=== PATIENT | female | born 1960 | race Caucasian/White ===

== ENCOUNTER → 2018-10-16 14:52 | Outpatient (CLI) | payer OTHER, SELFPAY ==
--- NOTE | 2018-10-16 | DI.ECHO.S_ITS ---
[facility]---------+ [facility] +---------+ : : [address] : [address] [place] : : : : [id number] : : : : Phone: [phone]+ Echocardiogram Report + + :Name: TORY NEWTON Study Date: 10/16/2018 Height: 64 in : :[facility] Weight: 186 lb : : Gender: Female BSA: 1.9 m2 : :: 1960 Age: 58 yrs BP: 120/82 mmHg: :Reason For Study: Arrhythmia, PVCs : : Performed By: Belén Tobin : :Referring: MORIAH CHERY : + + Interpretation Summary 1) Normal left ventricular thickness, size, wall motion, and systolic function (EF 60-65%). 2) Grossly, normal right ventricular size and function. 3) No significant valvular abnormalities. 4) No prior Echo available for comparison. Procedure: A two-dimensional transthoracic echocardiogram with color flow and Doppler was performed. The study quality was technically adequate. There is no prior echocardiogram noted for this patient. The patient was in normal sinus rhythm during the exam. The patient had occasional PVCs during the exam. Left Ventricle: The left ventricle is normal in size, wall thickness, and systolic function without any focal wall motion abnormalities. The ejection fraction is estimated to be 60-65%. Diastolic function could not be accurately assessed due to unobtainable data. Right Ventricle: The right ventricle grossly appears normal in size with probable normal systolic function. Atria: The left atrial size is normal. Right atrial size is normal. The interatrial septum is intact with no evidence for an atrial septal defect. Mitral Valve: The mitral valve is normal in structure and function. There is no mitral regurgitation noted. Aortic Valve: The aortic valve is trileaflet. The aortic valve opens well. There is no aortic valve stenosis. No aortic regurgitation is present. Tricuspid Valve: The tricuspid valve is normal in structure and function. No tricuspid regurgitation. Pulmonic Valve: The pulmonic valve is normal in structure and function. There is trace pulmonic regurgitation. Great Vessels: The aortic root is normal size. The dimensions of the ascending aorta are normal. The aortic arch is normal in size. The IVC is of normal diameter and collapses less than 50% with a sniff. This suggests a right atrial pressure of 8 mm Hg. Pericardium/ Pleura There is no pericardial effusion. There is no pleural effusion. MMode/2D Measurements & Calculations LVIDd: 4.1 cm Ao root diam: 2.7 cm LVIDs: 2.8 cm Aortic Jxn: 2.5 cm FS: 32.1 % asc Aorta Diam: 2.8 cm EPSS: 0.56 cm Ao Arch Diam (Prox Trans): 2.7 cm IVSd: 0.95 cm LVPWd: 0.89 cm LV reddy. diameter/BSA (cm/m^2): 2.1 LV sys. diameter/BSA (cm/m^2): 1.5 LA dimension: 3.9 cm RA long axis: 4.0 cm LA A2 area: 18.0 cm2 RA area: 12.5 cm2 LA A4 area: 14.6 cm2 RA vol: 33.1 ml LA length (vol): 4.9 cm RA : 17.5 ml/m2 LA vol: 45.9 ml IVC diam: 1.5 cm LA vol index: 24.2 ml/m2 Doppler Measurements & Calculations Ao V2 max: 136.1 cm/sec MV E max vitaly: 68.1 cm/sec Ao V2 mean: 86.3 cm/sec MV A max vitaly: 91.5 cm/sec Ao max P.4 mmHg MV E/A: 0.74 Ao mean P.6 mmHg Med Peak E' Vitaly: 5.3 cm/sec Ao V2 VTI: 25.4 cm E/E' med: 12.9 Lat Peak E' Vitaly: 8.0 cm/sec E/E' lat: 8.5 E/e' average: 10.7 MV dec time: 0.30 sec MV P1/2t: 87.0 msec PA V2 max: 72.8 cm/sec MV P1/2t max vitaly: 67.7 cm/sec PA V2 mean: 41.9 cm/sec MVA(P1/2t): 2.5 cm2 PA mean P.87 mmHg PA Accel Time: 0.18 sec Reading Physician:10:23 AM
== END ==
PROVIDERS: PCP Internal Medicine; Visit Provider Internal Medicine Cardiovascular Disease
DX: I49.3 Ventricular premature depolarization (principal)
CPT/HCPCS: 93306

== ENCOUNTER 2021-02-01 09:25 | Inpatient (IN) | payer OTHER, SELFPAY ==
[2021-02-01] VITALS (12 sets, daily range): BP systolic 127–158; BP diastolic 60–75; PULSE 90–120; RESP 17–18; TEMP 36.2–37; O2SAT 95–100; BMI 27.8; BMI 28.0
[2021-02-01 09:40] LABS: Add Manual Diff / Slide Review NO; Basophils Absolute Auto 100 /uL (0-100); Basophils Percent Auto 0.4 % (0-2); Eosinophils Absolute Auto 0 /uL (0-450); Hematocrit 47.6 % (36-46); Hemoglobin 16.2 g/dL (12.0-16.0); Lymphocytes Absolute Auto 900 /uL (1100-4500); Lymphocytes Percent Auto 6.1 % (25-40); Mean Corpuscular Hemoglobin 31.9 PG (26-34); Mean Corpuscular Volume 93.7 fL (80-100); Monocytes Absolute Auto 900 /uL (0-900); Monocytes Percent Auto 6.7 % (3-14); Neutrophils Absolute Auto 12200 /uL (1500-7000); Neutrophils Percent Auto 86.8 % (50-75); Platelet Count 287 X10^3/uL (150-400); Red Blood Cell Count 5.08 X10^6/uL (4.0-5.2); Red Cell Distribution Width 13.2 % (11.6-14.8); White Blood Cell Count 14.1 X10^3/uL (4.5-11.0)
[2021-02-01] MEDS: ONDANSETRON 4 MG/2 ML INJ IV ×2 (09:40→12:09)
[2021-02-01 09:51] LABS: Alanine Aminotransferase 47 IU/L (<35); Albumin 5.4 g/dL (3.5-5.0); Albumin Globulin Ratio 1.2 (1.0-2.8); Alkaline Phosphatase 200 U/L (38-126); Aspartate Aminotransferase 96 IU/L (14-36); BUN Creatinine Ratio 22.2 (6-22); Blood Urea Nitrogen 16 mg/dL (7-17); Carbon Dioxide 19 mmol/L (22-32); Chloride 92 mmol/L (98-107); Estimated Glomerular Filt Rate > 60.0 mL/min (>60); Globulin 4.5 g/dL (1.7-4.1); Glucose 142 mg/dL (70-100); HEMOLYSIS 32 (0-50); Lipase 59 U/L (23-300); Sodium 134 mmol/L (137-145)
[2021-02-01 09:53] LABS: Total Protein 9.9 g/dL (6.3-8.2)
--- NOTE | 2021-02-01 09:58 | ED_ITS ---
HPI - Abdominal Pain <Yanely Yepez PA-C - Last Filed: 02/01/21 14:00> General Chief Complaint: Abdominal Pain Stated Complaint: vomiting for two days, diarrhea, fever Time Seen by Provider: 02/01/21 09:33 Source: patient Mode of arrival: Ambulatory Limitations: no limitations History of Present Illness HPI narrative: Patient is a 60-year-old female PMH HTN, cholecystectomy, hysterectomy, R breast cancer (remission, not currently under chemotherapy/radiation), left-sided abdominal hernia repair who presents the ED complaining of 2d history of lower abdominal pain, NBNB vomiting, and fever (Tmax 101F). Symptoms onset suddenly, have been worsening, and she reports po intolerance x2 days. Denies alleviating or exacerbating factors. She has attempted to use ODT zofran yesterday without relief. Pain is located in the L lower and suprapubic region without radiation of pain. Last BM today, reports new onset non-bloody diarrhea x few episodes. Denies sick contacts. Denies hematochezia, hemetemesis, melena, syncope, CP, SOB, flank pain, or urinary sxs. Related Data Home Medications Medication Instructions Recorded Confirmed cholestyramine (with sugar) 1 ea PO DAILY PRN 02/01/21 02/01/21 clobetasol 1 applic TOPICAL DAILY PRN 02/01/21 02/01/21 hydroxyzine HCl 25 mg PO Q8H PRN 02/01/21 02/01/21 lisinopril 40 mg PO BEDTIME 02/01/21 02/01/21 omeprazole 20 mg PO BID 02/01/21 02/01/21 propranolol 20 mg PO BID PRN 02/01/21 02/01/21 venlafaxine 225 mg PO DAILY 02/01/21 02/01/21 Previous Rx's Medication Instructions Recorded amlodipine 10 mg PO QDAY #30 tab 03/30/16 Allergies Allergy/AdvReac Type Severity Reaction Status Date / Time neomycin Allergy Intermediate RASHES. Verified 02/01/21 09:33 Penicillins Allergy Intermediate RASHES ALL Verified 02/01/21 09:33 OVER, SWEELING. Review of Systems <Yanely Yepez PA-C - Last Filed: 02/01/21 14:00> Review of Systems Narrative: General: reports fever, denies chills Head/Neck: denies headache, neck pain Eyes: denies visual changes, eye pain Cardio: denies chest pain, palpitations Respiratory: denies shortness of breath, cough GI: Reports abdominal pain, nausea, vomiting, and diarrhea : denies dysuria, hematuria MSK: denies joint pain, muscle weakness Skin: denies rash, itching Neuro: denies LOC, numbness, tingling, loss of sensory/motor function Patient History <Yanely Yepez PA-C - Last Filed: 02/01/21 14:00> Medical History Johnston esophagus Breast cancer, right GERD (gastroesophageal reflux disease) Hypertension Surgical History History of hysterectomy Hx of cholecystectomy Hx of hernia repair Social History household members: spouse Smoking Status: Former smoker alcohol intake: current Smoking Status: Former smoker alcohol intake frequency: 0-2 drinks per day Substance Use Type: does not use Exam <Yanely Yepez PA-C - Last Filed: 02/01/21 14:00> Narrative Exam Narrative: General: Awake, alert, ill, uncomfortable appearing, no cardiorespiratory distress Head/Neck: Atraumatic, neck full range of motion Eyes: EOMI, conjunctiva normal Nose: nares patent, no rhinorrhea Mouth/Throat: Dry mucus membranes, posterior pharynx normal, no oral lesions Cardio: Tachycardic, regular rhythm, no peripheral edema Respiratory: CTAB without wheezing, stridor, or rales. No retractions. GI: Abdomen soft. TTP LLQ, suprapubic regions with voluntary guarding. No appreciable distention, hernia, or peritoneal signs. MSK: Moves all extremities, neurovascularly intact Skin: Normal capillary refill, no rash Neuro: Normal speech and cognition, normal gait Initial Vital Signs Initial Vital Signs: Vital Signs Temperature 98.3 F 02/01/21 09:28 Pulse Rate 115 H 02/01/21 09:28 Respiratory Rate 17 02/01/21 09:28 Blood Pressure 158/75 H 02/01/21 09:28 Pulse Oximetry 100 02/01/21 09:28 <Sergei Lainez DO - Last Filed: 02/01/21 19:03> Initial Vital Signs Initial Vital Signs: Vital Signs Temperature 98.3 F 02/01/21 09:28 Pulse Rate 115 H 02/01/21 09:28 Respiratory Rate 17 02/01/21 09:28 Blood Pressure 158/75 H 02/01/21 09:28 Pulse Oximetry 100 02/01/21 09:28 Course <Yanely Yepez PA-C - Last Filed: 02/01/21 14:00> Orders Ordered: ED Orders 02/01/21 10:32 CT abdomen pelvis w con Stat 02/01/21 10:42 Blood Culture Stat Complete Blood Count AUTO DIFF Stat Comprehensive Metabolic Panel Stat Lactate (Lactic Acid) Stat Lipase Stat 02/01/21 11:25 Urinalysis and Microscopic Stat Acetaminophen (Acetaminophen 325 Mg Tablet) 650 mg PO Q6HR PRN PRN Reason: Fever/Mild Pain (1-3) Cholestyramine Resin (Cholestyramine/Aspartame 4 Gm Pack) 4 gm PO DAILY [facility] Folic Acid (Folic Acid 1 Mg Tablet) 1 mg PO DAILY [facility] Heparin Sodium (Porcine) (Heparin 5,000 Unit/Ml Vial) 5,000 unit SUBCUT BID [facility] Sodium Chloride (Normal Saline 0.9%) 1,000 mls @ 150 mls/hr IV CONT [facility] Last Admin: 02/01/21 13:35 Dose: 150 mls/hr Documented by: FABBY Thiamine HCl 100 mg/ Sodium (Chloride) 101 mls @ 404 mls/hr IV DAILY [facility] Last Infusion: 02/01/21 15:52 Dose: 0 mls/hr Documented by: Admin: 02/01/21 15:00 Dose: 404 mls/hr Documented by: FABBY Lorazepam (Lorazepam 2 Mg/Ml Inj) 0 mg IV CIWAPRN PRN; Protocol PRN Reason: Alcohol Withdrawal Lorazepam (Lorazepam 1 Mg Tablet) 0 mg PO CIWAPRN PRN; Protocol PRN Reason: Alcohol Withdrawal Morphine Sulfate (Morphine 2 Mg/Ml Inj) 2 mg IV Q4HR PRN PRN Reason: Pain, Moderate (4-6) Multivitamins (Multivitamin 1 Tablet) 1 tab PO DAILY [facility] Naloxone HCl (Naloxone 0.4 Mg/Ml Vial) 0.2 mg IV Q2MIN PRN PRN Reason: Opiate Reversal Ondansetron HCl (Ondansetron 4 Mg/2 Ml Inj) 4 mg IV Q8HR PRN PRN Reason: Nausea And Vomiting Oxycodone HCl (Oxycodone Ir 5 Mg Tablet) 5 mg PO Q6HR PRN PRN Reason: Pain, Moderate (4-6) Pantoprazole Sodium (Pantoprazole 40 Mg Vial) 40 mg IV DAILY [facility] Last Admin: 02/01/21 13:35 Dose: 40 mg Documented by: FABBY Venlafaxine HCl (Venlafaxine Er 75 Mg Cap) 225 mg PO DAILY [facility] Discontinued Medications Sodium Chloride (Normal Saline 0.9%) 1,000 mls @ 150 mls/hr IV CONT MELANIA Last Infusion: 02/01/21 13:37 Dose: 0 mls/hr Documented by: Infusion: 02/01/21 12:57 Dose: 0 mls/hr Documented by: Admin: 02/01/21 10:19 Dose: 150 mls/hr Documented by: LUISITO Ciprofloxacin (Cipro) 400 mg in 200 mls @ 200 mls/hr IV NOW ONE Stop: 02/01/21 10:53 Last Infusion: 02/01/21 12:55 Dose: 0 mls/hr Documented by: Admin: 02/01/21 10:52 Dose: 200 mls/hr Documented by: LUISITO Metronidazole (Flagyl) 500 mg in 100 mls @ 100 mls/hr IV NOW ONE Stop: 02/01/21 10:53 Last Infusion: 02/01/21 12:00 Dose: 0 mls/hr Documented by: Admin: 02/01/21 10:43 Dose: 100 mls/hr Documented by: LUISITO Sodium Chloride (Normal Saline 0.9%) 1,000 mls @ 1,000 mls/hr IV BOLUS ONE Stop: 02/01/21 12:20 Last Infusion: 02/01/21 12:55 Dose: 0 mls/hr Documented by: Admin: 02/01/21 12:35 Dose: 1,000 mls/hr Documented by: LUISITO Magnesium Sulfate (Magnesium Sulfate) 2 gm in 50 mls @ 25 mls/hr IV NOW ONE Stop: 02/01/21 17:09 Last Admin: 02/01/21 15:48 Dose: 25 mls/hr Documented by: MARIA LUISA Cosigned by: MIKEL Potassium Phosphate 15 mmol/ (Dextrose) 255 mls @ 63.75 mls/hr IV NOW ONE Stop: 02/01/21 15:12 Last Admin: 02/01/21 15:52 Dose: 63.75 mls/hr Documented by: MARIA LUISA Lorazepam (Lorazepam 2 Mg/Ml Inj) 0.5 mg IV Q6HR PRN PRN Reason: Nausea And Vomiting Last Admin: 02/01/21 13:40 Dose: 0.5 mg Documented by: FABBY Lorazepam (Lorazepam 0.5 Mg Tablet) 0.5 mg PO BEDTIME ONE Stop: 02/01/21 18:46 Morphine Sulfate (Morphine 4 Mg/Ml Inj) 4 mg IV NOW ONE Stop: 02/01/21 09:47 Last Admin: 02/01/21 10:15 Dose: 4 mg Documented by: CTRARLYN Morphine Sulfate (Morphine 4 Mg/Ml Inj) 4 mg IV NOW ONE Stop: 02/01/21 11:51 Last Admin: 02/01/21 12:10 Dose: 4 mg Documented by: LUISITO Ondansetron HCl (Ondansetron 4 Mg/2 Ml Inj) 4 mg IV NOW ONE Stop: 02/01/21 09:34 Last Admin: 02/01/21 09:40 Dose: 4 mg Documented by: SARIAH Ondansetron HCl (Ondansetron 4 Mg/2 Ml Inj) 4 mg IV NOW ONE Stop: 02/01/21 11:51 Last Admin: 02/01/21 12:09 Dose: 4 mg Documented by: CTRARLYN Thiamine HCl (Thiamine 200 Mg/2 Ml Vial) 100 mg IV DAILY MELANIA Vital Signs Vital signs: Vital Signs - 8 hr 02/01/21 11:30 02/01/21 12:00 Pulse Rate 120 H 112 H Pulse Oximetry 100 97 <Sergei Lainez DO - Last Filed: 02/01/21 19:03> Orders Ordered: ED Orders 02/01/21 10:32 CT abdomen pelvis w con Stat 02/01/21 10:42 Blood Culture Stat Complete Blood Count AUTO DIFF Stat Comprehensive Metabolic Panel Stat Lactate (Lactic Acid) Stat Lipase Stat 02/01/21 11:25 Urinalysis and Microscopic Stat Acetaminophen (Acetaminophen 325 Mg Tablet) 650 mg PO Q6HR PRN PRN Reason: Fever/Mild Pain (1-3) Cholestyramine Resin (Cholestyramine/Aspartame 4 Gm Pack) 4 gm PO DAILY [facility] Folic Acid (Folic Acid 1 Mg Tablet) 1 mg PO DAILY [facility] Heparin Sodium (Porcine) (Heparin 5,000 Unit/Ml Vial) 5,000 unit SUBCUT BID [facility] Sodium Chloride (Normal Saline 0.9%) 1,000 mls @ 150 mls/hr IV CONT [facility] Last Admin: 02/01/21 13:35 Dose: 150 mls/hr Documented by: FABBY Thiamine HCl 100 mg/ Sodium (Chloride) 101 mls @ 404 mls/hr IV DAILY MELANIA Last Infusion: 02/01/21 15:52 Dose: 0 mls/hr Documented by: DULCEHIDAVIDA Admin: 02/01/21 15:00 Dose: 404 mls/hr Documented by: FABBY Lorazepam (Lorazepam 2 Mg/Ml Inj) 0 mg IV CIWAPRN PRN; Protocol PRN Reason: Alcohol Withdrawal Lorazepam (Lorazepam 1 Mg Tablet) 0 mg PO CIWAPRN PRN; Protocol PRN Reason: Alcohol Withdrawal Morphine Sulfate (Morphine 2 Mg/Ml Inj) 2 mg IV Q4HR PRN PRN Reason: Pain, Moderate (4-6) Multivitamins (Multivitamin 1 Tablet) 1 tab PO DAILY [facility] Naloxone HCl (Naloxone 0.4 Mg/Ml Vial) 0.2 mg IV Q2MIN PRN PRN Reason: Opiate Reversal Ondansetron HCl (Ondansetron 4 Mg/2 Ml Inj) 4 mg IV Q8HR PRN PRN Reason: Nausea And Vomiting Oxycodone HCl (Oxycodone Ir 5 Mg Tablet) 5 mg PO Q6HR PRN PRN Reason: Pain, Moderate (4-6) Pantoprazole Sodium (Pantoprazole 40 Mg Vial) 40 mg IV DAILY [facility] Last Admin: 02/01/21 13:35 Dose: 40 mg Documented by: FABBY Venlafaxine HCl (Venlafaxine Er 75 Mg Cap) 225 mg PO DAILY [facility] Discontinued Medications Sodium Chloride (Normal Saline 0.9%) 1,000 mls @ 150 mls/hr IV CONT [facility] Last Infusion: 02/01/21 13:37 Dose: 0 mls/hr Documented by: Infusion: 02/01/21 12:57 Dose: 0 mls/hr Documented by: Admin: 02/01/21 10:19 Dose: 150 mls/hr Documented by: CTRARLYN Ciprofloxacin (Cipro) 400 mg in 200 mls @ 200 mls/hr IV NOW ONE Stop: 02/01/21 10:53 Last Infusion: 02/01/21 12:55 Dose: 0 mls/hr Documented by: Admin: 02/01/21 10:52 Dose: 200 mls/hr Documented by: CTRARLYN Metronidazole (Flagyl) 500 mg in 100 mls @ 100 mls/hr IV NOW ONE Stop: 02/01/21 10:53 Last Infusion: 02/01/21 12:00 Dose: 0 mls/hr Documented by: Admin: 02/01/21 10:43 Dose: 100 mls/hr Documented by: LUISITO Sodium Chloride (Normal Saline 0.9%) 1,000 mls @ 1,000 mls/hr IV BOLUS ONE Stop: 02/01/21 12:20 Last Infusion: 02/01/21 12:55 Dose: 0 mls/hr Documented by: Admin: 02/01/21 12:35 Dose: 1,000 mls/hr Documented by: LUISITO Magnesium Sulfate (Magnesium Sulfate) 2 gm in 50 mls @ 25 mls/hr IV NOW ONE Stop: 02/01/21 17:09 Last Admin: 02/01/21 15:48 Dose: 25 mls/hr Documented by: MARIA LUISA Cosigned by: MIKEL Potassium Phosphate 15 mmol/ (Dextrose) 255 mls @ 63.75 mls/hr IV NOW ONE Stop: 02/01/21 15:12 Last Admin: 02/01/21 15:52 Dose: 63.75 mls/hr Documented by: MARIA LUISA Lorazepam (Lorazepam 2 Mg/Ml Inj) 0.5 mg IV Q6HR PRN PRN Reason: Nausea And Vomiting Last Admin: 02/01/21 13:40 Dose: 0.5 mg Documented by: FABBY Lorazepam (Lorazepam 0.5 Mg Tablet) 0.5 mg PO BEDTIME ONE Stop: 02/01/21 18:46 Morphine Sulfate (Morphine 4 Mg/Ml Inj) 4 mg IV NOW ONE Stop: 02/01/21 09:47 Last Admin: 02/01/21 10:15 Dose: 4 mg Documented by: LUISITO Morphine Sulfate (Morphine 4 Mg/Ml Inj) 4 mg IV NOW ONE Stop: 02/01/21 11:51 Last Admin: 02/01/21 12:10 Dose: 4 mg Documented by: LUISITO Ondansetron HCl (Ondansetron 4 Mg/2 Ml Inj) 4 mg IV NOW ONE Stop: 02/01/21 09:34 Last Admin: 02/01/21 09:40 Dose: 4 mg Documented by: SARIAH Ondansetron HCl (Ondansetron 4 Mg/2 Ml Inj) 4 mg IV NOW ONE Stop: 02/01/21 11:51 Last Admin: 02/01/21 12:09 Dose: 4 mg Documented by: LUISITO Thiamine HCl (Thiamine 200 Mg/2 Ml Vial) 100 mg IV DAILY [facility] Vital Signs Vital signs: Vital Signs - 8 hr 02/01/21 11:30 02/01/21 12:00 Pulse Rate 120 H 112 H Pulse Oximetry 100 97 MDM - Abdominal Pain <Yanely Yepez PA-C - Last Filed: 02/01/21 14:00> Differential Diagnosis Differential diagnosis: Likely abdominal pain, acute appendicitis, calculus of kidney, constipation, diverticulitis, gastroenteritis, pancreatitis and small bowel obstruction Lab Data Attestation: I reviewed the patient's lab results. Result diagrams: 02/01/21 10:42 02/01/21 10:42 Labs: Lab Results 02/01/21 02/01/21 02/01/21 Range/Units 09:35 09:35 10:42 WBC 14.1 H 11.7 H (4.5-11.0) X10^3/uL RBC 5.08 4.66 (4.0-5.2) X10^6/uL Hgb 16.2 H 14.9 (12.0-16.0) g/dL Hct 47.6 H 44.1 (36-46) % MCV 93.7 94.7 (80-100) fL MCH 31.9 32.0 (26-34) PG MCHC 34.0 33.8 (30-36) % RDW 13.2 13.8 (11.6-14.8) % Plt Count 287 231 (150-400) X10^3/uL Neut % (Auto) 86.8 H 85.5 H (50-75) % Lymph % (Auto) 6.1 L 6.4 L (25-40) % [place] % (Auto) 6.7 7.8 (3-14) % Eos % (Auto) 0.0 L 0.0 L (2-4) % Baso % (Auto) 0.4 0.3 (0-2) % Neut # (Auto) 11025 H 47268 H (6065-7799) /uL Lymph # (Auto) 900 L 700 L (9628-5291) /uL [place] # (Auto) 900 900 (0-900) /uL Eos # (Auto) 0 0 (0-450) /uL Baso # (Auto) 100 0 (0-100) /uL Sodium 134 L (137-145) mmol/L Potassium 4.0 (3.4-5.1) mmol/L Chloride 92 L (98-107) mmol/L Carbon Dioxide 19 L (22-32) mmol/L BUN 16 (7-17) mg/dL Creatinine 0.72 (0.52-1.04) mg/dL Estimated GFR > 60.0 (>60) mL/min BUN/Creatinine Ratio 22.2 H (6-22) Glucose 142 H (70-100) mg/dL Lactate (0.7-2.1) mmol/L Calcium 11.0 H (8.4-10.2) mg/dL Phosphorus (2.5-4.5) mg/dL Magnesium (1.6-2.3) mg/dL Total Bilirubin 4.0 H (0.2-1.3) mg/dL AST 96 H (14-36) IU/L ALT 47 H (<35) IU/L Alkaline Phosphatase 200 H (38-126) U/L Total Protein 9.9 H* (6.3-8.2) g/dL Albumin 5.4 H (3.5-5.0) g/dL Globulin 4.5 H (1.7-4.1) g/dL Albumin/Globulin Ratio 1.2 (1.0-2.8) Lipase 59 (23-300) U/L TSH (0.47-4.68) uIU/mL Urine Color Urine Appearance Urine pH (4.5-8.0) Ur Specific [place] (1.000-1.035) Urine Protein (Negative) Urine Glucose (UA) (Negative) g/dL Urine Ketones (NEGATIVE) Urine Occult Blood (Negative) Urine Nitrate (Negative) Urine Bilirubin (NEGATIVE) Urine Urobilinogen (0.2) E.U./dL Ur Leukocyte Esterase (NEGATIVE) Urine RBC (0-5/HPF) Urine WBC (0-5/HPF) Ur Squamous Epith Cells (0-5/HPF) Urine Bacteria (None) Hyaline Casts (None) Ur Culture Indicated? Ethyl Alcohol ( - 10) mg/dL Hep Bs Antigen (NEGATIVE) s/c 02/01/21 02/01/21 02/01/21 Range/Units 10:42 10:42 10:42 WBC (4.5-11.0) X10^3/uL RBC (4.0-5.2) X10^6/uL Hgb (12.0-16.0) g/dL Hct (36-46) % MCV (80-100) fL MCH (26-34) PG MCHC (30-36) % RDW (11.6-14.8) % Plt Count (150-400) X10^3/uL Neut % (Auto) (50-75) % Lymph % (Auto) (25-40) % [place] % (Auto) (3-14) % Eos % (Auto) (2-4) % Baso % (Auto) (0-2) % Neut # (Auto) (7137-7414) /uL Lymph # (Auto) (0770-1760) /uL [place] # (Auto) (0-900) /uL Eos # (Auto) (0-450) /uL Baso # (Auto) (0-100) /uL Sodium 132 L (137-145) mmol/L Potassium 3.8 (3.4-5.1) mmol/L Chloride 92 L (98-107) mmol/L Carbon Dioxide 19 L (22-32) mmol/L BUN 15 (7-17) mg/dL Creatinine 0.64 (0.52-1.04) mg/dL Estimated GFR > 60.0 (>60) mL/min BUN/Creatinine Ratio 23.4 H (6-22) Glucose 119 H (70-100) mg/dL Lactate 1.0 (0.7-2.1) mmol/L Calcium 10.1 (8.4-10.2) mg/dL Phosphorus (2.5-4.5) mg/dL Magnesium (1.6-2.3) mg/dL Total Bilirubin 3.4 H (0.2-1.3) mg/dL AST 89 H (14-36) IU/L ALT 41 H (<35) IU/L Alkaline Phosphatase 171 H (38-126) U/L Total Protein 8.6 H (6.3-8.2) g/dL Albumin 5.0 (3.5-5.0) g/dL Globulin 3.6 (1.7-4.1) g/dL Albumin/Globulin Ratio 1.4 (1.0-2.8) Lipase 54 (23-300) U/L TSH (0.47-4.68) uIU/mL Urine Color Urine Appearance Urine pH (4.5-8.0) Ur Specific [place] (1.000-1.035) Urine Protein (Negative) Urine Glucose (UA) (Negative) g/dL Urine Ketones (NEGATIVE) Urine Occult Blood (Negative) Urine Nitrate (Negative) Urine Bilirubin (NEGATIVE) Urine Urobilinogen (0.2) E.U./dL Ur Leukocyte Esterase (NEGATIVE) Urine RBC (0-5/HPF) Urine WBC (0-5/HPF) Ur Squamous Epith Cells (0-5/HPF) Urine Bacteria (None) Hyaline Casts (None) Ur Culture Indicated? Ethyl Alcohol ( - 10) mg/dL Hep Bs Antigen Negative (NEGATIVE) s/c 02/01/21 02/01/21 02/01/21 Range/Units 10:42 10:42 10:42 WBC (4.5-11.0) X10^3/uL RBC (4.0-5.2) X10^6/uL Hgb (12.0-16.0) g/dL Hct (36-46) % MCV (80-100) fL MCH (26-34) PG MCHC (30-36) % RDW (11.6-14.8) % Plt Count (150-400) X10^3/uL Neut % (Auto) (50-75) % Lymph % (Auto) (25-40) % [place] % (Auto) (3-14) % Eos % (Auto) (2-4) % Baso % (Auto) (0-2) % Neut # (Auto) (5575-3962) /uL Lymph # (Auto) (6627-3657) /uL [place] # (Auto) (0-900) /uL Eos # (Auto) (0-450) /uL Baso # (Auto) (0-100) /uL Sodium (137-145) mmol/L Potassium (3.4-5.1) mmol/L Chloride (98-107) mmol/L Carbon Dioxide (22-32) mmol/L BUN (7-17) mg/dL Creatinine (0.52-1.04) mg/dL Estimated GFR (>60) mL/min BUN/Creatinine Ratio (6-22) Glucose (70-100) mg/dL Lactate (0.7-2.1) mmol/L Calcium (8.4-10.2) mg/dL Phosphorus 1.6 L (2.5-4.5) mg/dL Magnesium 1.8 (1.6-2.3) mg/dL Total Bilirubin (0.2-1.3) mg/dL AST (14-36) IU/L ALT (<35) IU/L Alkaline Phosphatase (38-126) U/L Total Protein (6.3-8.2) g/dL Albumin (3.5-5.0) g/dL Globulin (1.7-4.1) g/dL Albumin/Globulin Ratio (1.0-2.8) Lipase (23-300) U/L TSH 1.39 (0.47-4.68) uIU/mL Urine Color Urine Appearance Urine pH (4.5-8.0) Ur Specific [place] (1.000-1.035) Urine Protein (Negative) Urine Glucose (UA) (Negative) g/dL Urine Ketones (NEGATIVE) Urine Occult Blood (Negative) Urine Nitrate (Negative) Urine Bilirubin (NEGATIVE) Urine Urobilinogen (0.2) E.U./dL Ur Leukocyte Esterase (NEGATIVE) Urine RBC (0-5/HPF) Urine WBC (0-5/HPF) Ur Squamous Epith Cells (0-5/HPF) Urine Bacteria (None) Hyaline Casts (None) Ur Culture Indicated? Ethyl Alcohol < 10 ( - 10) mg/dL Hep Bs Antigen (NEGATIVE) s/c 02/01/21 Range/Units 11:25 WBC (4.5-11.0) X10^3/uL RBC (4.0-5.2) X10^6/uL Hgb (12.0-16.0) g/dL Hct (36-46) % MCV (80-100) fL MCH (26-34) PG MCHC (30-36) % RDW (11.6-14.8) % Plt Count (150-400) X10^3/uL Neut % (Auto) (50-75) % Lymph % (Auto) (25-40) % [place] % (Auto) (3-14) % Eos % (Auto) (2-4) % Baso % (Auto) (0-2) % Neut # (Auto) (7493-7233) /uL Lymph # (Auto) (6394-4655) /uL [place] # (Auto) (0-900) /uL Eos # (Auto) (0-450) /uL Baso # (Auto) (0-100) /uL Sodium (137-145) mmol/L Potassium (3.4-5.1) mmol/L Chloride (98-107) mmol/L Carbon Dioxide (22-32) mmol/L BUN (7-17) mg/dL Creatinine (0.52-1.04) mg/dL Estimated GFR (>60) mL/min BUN/Creatinine Ratio (6-22) Glucose (70-100) mg/dL Lactate (0.7-2.1) mmol/L Calcium (8.4-10.2) mg/dL Phosphorus (2.5-4.5) mg/dL Magnesium (1.6-2.3) mg/dL Total Bilirubin (0.2-1.3) mg/dL AST (14-36) IU/L ALT (<35) IU/L Alkaline Phosphatase (38-126) U/L Total Protein (6.3-8.2) g/dL Albumin (3.5-5.0) g/dL Globulin (1.7-4.1) g/dL Albumin/Globulin Ratio (1.0-2.8) Lipase (23-300) U/L TSH (0.47-4.68) uIU/mL Urine Color Yellow Urine Appearance Clear Urine pH 6.5 (4.5-8.0) Ur Specific [place] <=1.005 (1.000-1.035) Urine Protein 1+ H (Negative) Urine Glucose (UA) Negative (Negative) g/dL Urine Ketones 3+ H (NEGATIVE) Urine Occult Blood 1+ H (Negative) Urine Nitrate Negative (Negative) Urine Bilirubin Negative (NEGATIVE) Urine Urobilinogen 1.0 (0.2) E.U./dL Ur Leukocyte Esterase Negative (NEGATIVE) Urine RBC 5-10/hpf H (0-5/HPF) Urine WBC None seen (0-5/HPF) Ur Squamous Epith Cells 1-5 /hpf (0-5/HPF) Urine Bacteria None seen (None) Hyaline Casts 0-1/lpf (None) Ur Culture Indicated? Cult not indicated Ethyl Alcohol ( - 10) mg/dL Hep Bs Antigen (NEGATIVE) s/c Point of care testing: Point of Care Testing Test Results Negative Urine Dip Bedside Urine Glucose Negative Bedside Urine Bilirubin - Negative Bedside Urine Ketone +++ 80 Urine Specific [place] 1.010 Bedside Urine Occult Blood + Bedside Urine pH 6.0 Bedside Urine Protein + 30 Bedside Urine Urobilinogen - Negative Bedside Urine Nitrite - Negative Bedside Urine Leukocytes - Negative Esterase Imaging Data CT scan - abdomen/pelvis: Attestation: I personally reviewed and interpreted this imaging study as follows: Radiologist's Impression: [address] [address] Scan ReportSigned Patient: Arabella De La Fuente LMR#: [id number]: 2Acct:[id number]/Sex: 60 / FDate of Service: 02/01/21Loc: EDAccession Number: [id number] Procedure: CT abdomen pelvis w con Ordering Provider: Yanely Yepez P.A-C PROCEDURE: CT ABDOMEN PELVIS W CON INDICATIONS: LLQ pain, vomiting, po intolerant TECHNIQUE: After the administration of intravenous contrast, axial sections acquired from the lung bases to the pubic symphysis. Coronal and sagittal reformats were performed. For radiation dose reduction, the following was used: automated exposure control, adjustment of mA and/or kV according to patient size. COMPARISON: [facility], CT, CT ABDOMEN PELVIS WITH CONTRAST, 09/26/2019, 13:48. [facility], CT, CT ABDOMEN PELVIS WITH CONTRAST, 01/08/2019, 17:11. Located Within [facility], CT, ABDOMEN/PELVIS WITH CONTRAST, 03/26/2016, 9:48. FINDINGS: Lower thorax: The lung bases are clear. Heart size normal. Small hiatal hernia noted with distal esophageal wall thickening. Liver: The liver is diffusely decreased in attenuation without focal mass lesion. Liver is enlarged at 21 cm. A right hepatic hemangioma not demonstrated on the current exam. Biliary system: Cholecystectomy. No intra or extrahepatic bile duct dilation. Pancreas: Unremarkable without mass or inflammation evident. Spleen: Splenomegaly, 14.0 cm. No intrinsic lesion noted. Adrenals: Normal morphology and density. Reproductive system: Hysterectomy Urinary system: There is a striated hypoperfusion of the renal cortex bilaterally. No renal calculi or perinephric inflammatory change. No hydronephrosis. Gastrointestinal system: Fatty infiltration of the right colon muscularis consistent with sequelae of prior or colitis. No acute inflammatory change, or obstruction. The stomach appears unremarkable. 2.3 cm probable duodenal diverticulum is similar to the prior exam. Appendix: No findings to suggest acute appendicitis. Peritoneal spaces: No mesenteric or retroperitoneal adenopathy. No free air. No free fluid. Vasculature: The IVC, aorta and iliac vasculature are unremarkable. Musculoskeletal: Normal bone mineralization. No acute fractures. Prior periumbilical ventral hernia repair without recurrence or residual. T11 sclerotic bone island remains unchanged from the prior. IMPRESSION: 1. Striated hypoenhancement of both kidneys may be related to phase of enhancement. Differential would include early of pyelonephritis if consistent with clinical findings. No renal calculi or hydronephrosis. No perinephric inflammatory change. 2. Hepatosplenomegaly and hepatic fatty infiltration, stable from prior. 3. Ventral hernia repair without recurrence or residual hernia. 4. Small hiatal hernia and distal esophageal wall thickening may reflect mild esophagitis. Dictated by: Fredy Alvarez M.D. on 02/01/2021 at 9:38 Approved by: Fredy Alvarez M.D. on 02/01/2021 at 9:57 MDM Narrative Medical decision making narrative: 0933: Patient initially evaluated and examined in the ED. patient informed of the plan of care and agrees. Tachycardic, nontoxic, uncomfortable appearing. Sepsis orders initiated (lactic, blood cultures, empiric abx, and IVF) given hx of fever, tachycardia, and exam with LLQ tenderness concerning for surgical abdominal pathology. CBC, CMP significant for leukocytosis (WBC 14.1), transaminitis, and elevated protein (9.9). Elevated BUN, mild hyponatremia, hypokalemia, hemoconcentration suggestive of dehydration c/w po intolerance x2 days 2/2 vomiting. 1020: CT A/P with hypoenhancement of bilateral kidneys (possible pyelonephritis, pending UA) without evidence of additional acute abdominal pathology. 1135 Patient re-evaluated, ambulatory. Informed of lab and imaging results as well as ED treatments. Pending UA. Remains tachycardic 120bpm with abd cramping to the LLQ, 12/26 currently. 1221 Advised by nursing staff that patient persists with vomiting, zofran ordered pending administration. UA unremarkable. 1249 Consult to the hospitalist, Dr. Yee. Agrees with evaluation and plan. Agrees to admit patient. Patient was informed of lab and imaging results, diagnoses, consulting physicians, and treatment plan. I have spoken with the patient in regard to admission, patient understands and agrees. I have communicated the patient's evaluation and treatment plan to the admitting physician who agrees with admission. All questions answered at this time. <Sergei Lainez, - Last Filed: 02/01/21 19:03> Lab Data Labs: Lab Results 02/01/21 02/01/21 02/01/21 Range/Units 09:35 09:35 10:42 WBC 14.1 H 11.7 H (4.5-11.0) X10^3/uL RBC 5.08 4.66 (4.0-5.2) X10^6/uL Hgb 16.2 H 14.9 (12.0-16.0) g/dL Hct 47.6 H 44.1 (36-46) % MCV 93.7 94.7 (80-100) fL MCH 31.9 32.0 (26-34) PG MCHC 34.0 33.8 (30-36) % RDW 13.2 13.8 (11.6-14.8) % Plt Count 287 231 (150-400) X10^3/uL Neut % (Auto) 86.8 H 85.5 H (50-75) % Lymph % (Auto) 6.1 L 6.4 L (25-40) % [place] % (Auto) 6.7 7.8 (3-14) % Eos % (Auto) 0.0 L 0.0 L (2-4) % Baso % (Auto) 0.4 0.3 (0-2) % Neut # (Auto) 28873 H 32095 H (1481-5009) /uL Lymph # (Auto) 900 L 700 L (6469-8819) /uL [place] # (Auto) 900 900 (0-900) /uL Eos # (Auto) 0 0 (0-450) /uL Baso # (Auto) 100 0 (0-100) /uL Sodium 134 L (137-145) mmol/L Potassium 4.0 (3.4-5.1) mmol/L Chloride 92 L (98-107) mmol/L Carbon Dioxide 19 L (22-32) mmol/L BUN 16 (7-17) mg/dL Creatinine 0.72 (0.52-1.04) mg/dL Estimated GFR > 60.0 (>60) mL/min BUN/Creatinine Ratio 22.2 H (6-22) Glucose 142 H (70-100) mg/dL Lactate (0.7-2.1) mmol/L Calcium 11.0 H (8.4-10.2) mg/dL Phosphorus (2.5-4.5) mg/dL Magnesium (1.6-2.3) mg/dL Total Bilirubin 4.0 H (0.2-1.3) mg/dL AST 96 H (14-36) IU/L ALT 47 H (<35) IU/L Alkaline Phosphatase 200 H (38-126) U/L Total Protein 9.9 H* (6.3-8.2) g/dL Albumin 5.4 H (3.5-5.0) g/dL Globulin 4.5 H (1.7-4.1) g/dL Albumin/Globulin Ratio 1.2 (1.0-2.8) Lipase 59 (23-300) U/L TSH (0.47-4.68) uIU/mL Urine Color Urine Appearance Urine pH (4.5-8.0) Ur Specific [place] (1.000-1.035) Urine Protein (Negative) Urine Glucose (UA) (Negative) g/dL Urine Ketones (NEGATIVE) Urine Occult Blood (Negative) Urine Nitrate (Negative) Urine Bilirubin (NEGATIVE) Urine Urobilinogen (0.2) E.U./dL Ur Leukocyte Esterase (NEGATIVE) Urine RBC (0-5/HPF) Urine WBC (0-5/HPF) Ur Squamous Epith Cells (0-5/HPF) Urine Bacteria (None) Hyaline Casts (None) Ur Culture Indicated? Ethyl Alcohol ( - 10) mg/dL Hep Bs Antigen (NEGATIVE) s/c 02/01/21 02/01/21 02/01/21 Range/Units 10:42 10:42 10:42 WBC (4.5-11.0) X10^3/uL RBC (4.0-5.2) X10^6/uL Hgb (12.0-16.0) g/dL Hct (36-46) % MCV (80-100) fL MCH (26-34) PG MCHC (30-36) % RDW (11.6-14.8) % Plt Count (150-400) X10^3/uL Neut % (Auto) (50-75) % Lymph % (Auto) (25-40) % [place] % (Auto) (3-14) % Eos % (Auto) (2-4) % Baso % (Auto) (0-2) % Neut # (Auto) (4746-1615) /uL Lymph # (Auto) (6001-2446) /uL [place] # (Auto) (0-900) /uL Eos # (Auto) (0-450) /uL Baso # (Auto) (0-100) /uL Sodium 132 L (137-145) mmol/L Potassium 3.8 (3.4-5.1) mmol/L Chloride 92 L (98-107) mmol/L Carbon Dioxide 19 L (22-32) mmol/L BUN 15 (7-17) mg/dL Creatinine 0.64 (0.52-1.04) mg/dL Estimated GFR > 60.0 (>60) mL/min BUN/Creatinine Ratio 23.4 H (6-22) Glucose 119 H (70-100) mg/dL Lactate 1.0 (0.7-2.1) mmol/L Calcium 10.1 (8.4-10.2) mg/dL Phosphorus (2.5-4.5) mg/dL Magnesium (1.6-2.3) mg/dL Total Bilirubin 3.4 H (0.2-1.3) mg/dL AST 89 H (14-36) IU/L ALT 41 H (<35) IU/L Alkaline Phosphatase 171 H (38-126) U/L Total Protein 8.6 H (6.3-8.2) g/dL Albumin 5.0 (3.5-5.0) g/dL Globulin 3.6 (1.7-4.1) g/dL Albumin/Globulin Ratio 1.4 (1.0-2.8) Lipase 54 (23-300) U/L TSH (0.47-4.68) uIU/mL Urine Color Urine Appearance Urine pH (4.5-8.0) Ur Specific [place] (1.000-1.035) Urine Protein (Negative) Urine Glucose (UA) (Negative) g/dL Urine Ketones (NEGATIVE) Urine Occult Blood (Negative) Urine Nitrate (Negative) Urine Bilirubin (NEGATIVE) Urine Urobilinogen (0.2) E.U./dL Ur Leukocyte Esterase (NEGATIVE) Urine RBC (0-5/HPF) Urine WBC (0-5/HPF) Ur Squamous Epith Cells (0-5/HPF) Urine Bacteria (None) Hyaline Casts (None) Ur Culture Indicated? Ethyl Alcohol ( - 10) mg/dL Hep Bs Antigen Negative (NEGATIVE) s/c 02/01/21 02/01/21 02/01/21 Range/Units 10:42 10:42 10:42 WBC (4.5-11.0) X10^3/uL RBC (4.0-5.2) X10^6/uL Hgb (12.0-16.0) g/dL Hct (36-46) % MCV (80-100) fL MCH (26-34) PG MCHC (30-36) % RDW (11.6-14.8) % Plt Count (150-400) X10^3/uL Neut % (Auto) (50-75) % Lymph % (Auto) (25-40) % [place] % (Auto) (3-14) % Eos % (Auto) (2-4) % Baso % (Auto) (0-2) % Neut # (Auto) (0249-3681) /uL Lymph # (Auto) (5723-0541) /uL [place] # (Auto) (0-900) /uL Eos # (Auto) (0-450) /uL Baso # (Auto) (0-100) /uL Sodium (137-145) mmol/L Potassium (3.4-5.1) mmol/L Chloride (98-107) mmol/L Carbon Dioxide (22-32) mmol/L BUN (7-17) mg/dL Creatinine (0.52-1.04) mg/dL Estimated GFR (>60) mL/min BUN/Creatinine Ratio (6-22) Glucose (70-100) mg/dL Lactate (0.7-2.1) mmol/L Calcium (8.4-10.2) mg/dL Phosphorus 1.6 L (2.5-4.5) mg/dL Magnesium 1.8 (1.6-2.3) mg/dL Total Bilirubin (0.2-1.3) mg/dL AST (14-36) IU/L ALT (<35) IU/L Alkaline Phosphatase (38-126) U/L Total Protein (6.3-8.2) g/dL Albumin (3.5-5.0) g/dL Globulin (1.7-4.1) g/dL Albumin/Globulin Ratio (1.0-2.8) Lipase (23-300) U/L TSH 1.39 (0.47-4.68) uIU/mL Urine Color Urine Appearance Urine pH (4.5-8.0) Ur Specific [place] (1.000-1.035) Urine Protein (Negative) Urine Glucose (UA) (Negative) g/dL Urine Ketones (NEGATIVE) Urine Occult Blood (Negative) Urine Nitrate (Negative) Urine Bilirubin (NEGATIVE) Urine Urobilinogen (0.2) E.U./dL Ur Leukocyte Esterase (NEGATIVE) Urine RBC (0-5/HPF) Urine WBC (0-5/HPF) Ur Squamous Epith Cells (0-5/HPF) Urine Bacteria (None) Hyaline Casts (None) Ur Culture Indicated? Ethyl Alcohol < 10 ( - 10) mg/dL Hep Bs Antigen (NEGATIVE) s/c 02/01/21 Range/Units 11:25 WBC (4.5-11.0) X10^3/uL RBC (4.0-5.2) X10^6/uL Hgb (12.0-16.0) g/dL Hct (36-46) % MCV (80-100) fL MCH (26-34) PG MCHC (30-36) % RDW (11.6-14.8) % Plt Count (150-400) X10^3/uL Neut % (Auto) (50-75) % Lymph % (Auto) (25-40) % [place] % (Auto) (3-14) % Eos % (Auto) (2-4) % Baso % (Auto) (0-2) % Neut # (Auto) (4002-8311) /uL Lymph # (Auto) (0894-7692) /uL [place] # (Auto) (0-900) /uL Eos # (Auto) (0-450) /uL Baso # (Auto) (0-100) /uL Sodium (137-145) mmol/L Potassium (3.4-5.1) mmol/L Chloride (98-107) mmol/L Carbon Dioxide (22-32) mmol/L BUN (7-17) mg/dL Creatinine (0.52-1.04) mg/dL Estimated GFR (>60) mL/min BUN/Creatinine Ratio (6-22) Glucose (70-100) mg/dL Lactate (0.7-2.1) mmol/L Calcium (8.4-10.2) mg/dL Phosphorus (2.5-4.5) mg/dL Magnesium (1.6-2.3) mg/dL Total Bilirubin (0.2-1.3) mg/dL AST (14-36) IU/L ALT (<35) IU/L Alkaline Phosphatase (38-126) U/L Total Protein (6.3-8.2) g/dL Albumin (3.5-5.0) g/dL Globulin (1.7-4.1) g/dL Albumin/Globulin Ratio (1.0-2.8) Lipase (23-300) U/L TSH (0.47-4.68) uIU/mL Urine Color Yellow Urine Appearance Clear Urine pH 6.5 (4.5-8.0) Ur Specific [place] <=1.005 (1.000-1.035) Urine Protein 1+ H (Negative) Urine Glucose (UA) Negative (Negative) g/dL Urine Ketones 3+ H (NEGATIVE) Urine Occult Blood 1+ H (Negative) Urine Nitrate Negative (Negative) Urine Bilirubin Negative (NEGATIVE) Urine Urobilinogen 1.0 (0.2) E.U./dL Ur Leukocyte Esterase Negative (NEGATIVE) Urine RBC 5-10/hpf H (0-5/HPF) Urine WBC None seen (0-5/HPF) Ur Squamous Epith Cells 1-5 /hpf (0-5/HPF) Urine Bacteria None seen (None) Hyaline Casts 0-1/lpf (None) Ur Culture Indicated? Cult not indicated Ethyl Alcohol ( - 10) mg/dL Hep Bs Antigen (NEGATIVE) s/c Point of care testing: Point of Care Testing Test Results Negative Urine Dip Bedside Urine Glucose Negative Bedside Urine Bilirubin - Negative Bedside Urine Ketone +++ 80 Urine Specific [place] 1.010 Bedside Urine Occult Blood + Bedside Urine pH 6.0 Bedside Urine Protein + 30 Bedside Urine Urobilinogen - Negative Bedside Urine Nitrite - Negative Bedside Urine Leukocytes - Negative Esterase Discharge Plan Departure Patient Disposition: Admitted as Observation Clinical Impression: Acute dehydration, Abdominal pain, LLQ Intractable vomiting Qualifiers: Vomiting type: unspecified Nausea presence: with nausea Qualified Code(s): R11.2 - Nausea with vomiting, unspecified Admit Date/Time: 02/01/21 12:48 Admit Provider: Berny Yee
[2021-02-01] MEDS: MORPHINE 4 MG/ML INJ IV ×2 (10:15→12:10)
[2021-02-01] MEDS: SODIUM CHLORIDE 0.9% 1,000 ML 150 ML IV ×2 (10:19→13:35)
--- NOTE | 2021-02-01 10:32 | DI.CT.S_ITS ---
PROCEDURE: CT ABDOMEN PELVIS W CON INDICATIONS: LLQ pain, vomiting, po intolerant TECHNIQUE: After the administration of intravenous contrast, axial sections acquired from the lung bases to the pubic symphysis. Coronal and sagittal reformats were performed. For radiation dose reduction, the following was used: automated exposure control, adjustment of mA and/or kV according to patient size. COMPARISON: [facility], CT, CT ABDOMEN PELVIS WITH CONTRAST, 09/26/2019, 13:48. [facility], CT, CT ABDOMEN PELVIS WITH CONTRAST, 01/08/2019, 17:11. [facility], CT, ABDOMEN/PELVIS WITH CONTRAST, 03/26/2016, 9:48. FINDINGS: Lower thorax: The lung bases are clear. Heart size normal. Small hiatal hernia noted with distal esophageal wall thickening. Liver: The liver is diffusely decreased in attenuation without focal mass lesion. Liver is enlarged at 21 cm. A right hepatic hemangioma not demonstrated on the current exam. Biliary system: Cholecystectomy. No intra or extrahepatic bile duct dilation. Pancreas: Unremarkable without mass or inflammation evident. Spleen: Splenomegaly, 14.0 cm. No intrinsic lesion noted. Adrenals: Normal morphology and density. Reproductive system: Hysterectomy Urinary system: There is a striated hypoperfusion of the renal cortex bilaterally. No renal calculi or perinephric inflammatory change. No hydronephrosis. Gastrointestinal system: Fatty infiltration of the right colon muscularis consistent with sequelae of prior or colitis. No acute inflammatory change, or obstruction. The stomach appears unremarkable. 2.3 cm probable duodenal diverticulum is similar to the prior exam. Appendix: No findings to suggest acute appendicitis. Peritoneal spaces: No mesenteric or retroperitoneal adenopathy. No free air. No free fluid. Vasculature: The IVC, aorta and iliac vasculature are unremarkable. Musculoskeletal: Normal bone mineralization. No acute fractures. Prior periumbilical ventral hernia repair without recurrence or residual. T11 sclerotic bone island remains unchanged from the prior. IMPRESSION: 1. Striated hypoenhancement of both kidneys may be related to phase of enhancement. Differential would include early of pyelonephritis if consistent with clinical findings. No renal calculi or hydronephrosis. No perinephric inflammatory change. 2. Hepatosplenomegaly and hepatic fatty infiltration, stable from prior. 3. Ventral hernia repair without recurrence or residual hernia. 4. Small hiatal hernia and distal esophageal wall thickening may reflect mild esophagitis. Dictated by: Fredy Alvarez, M.D. on 02/01/2021 at 9:38 Approved by: Fredy Alvarez M.D. on 02/01/2021 at 9:57
[2021-02-01] MEDS: metroNIDAZOLE 500 MG/100 ML PIGGYBACK 100 MG IV (10:43)
[2021-02-01 10:50] LABS: Add Manual Diff / Slide Review NO; Basophils Absolute Auto 0 /uL (0-100); Basophils Percent Auto 0.3 % (0-2); Eosinophils Absolute Auto 0 /uL (0-450); Hematocrit 44.1 % (36-46); Hemoglobin 14.9 g/dL (12.0-16.0); Lymphocytes Absolute Auto 700 /uL (1100-4500); Lymphocytes Percent Auto 6.4 % (25-40); Mean Corpuscular HGB Conc 33.8 % (30-36); Mean Corpuscular Volume 94.7 fL (80-100); Monocytes Absolute Auto 900 /uL (0-900); Monocytes Percent Auto 7.8 % (3-14); Neutrophils Absolute Auto 10000 /uL (1500-7000); Neutrophils Percent Auto 85.5 % (50-75); Platelet Count 231 X10^3/uL (150-400); Red Blood Cell Count 4.66 X10^6/uL (4.0-5.2); Red Cell Distribution Width 13.8 % (11.6-14.8); White Blood Cell Count 11.7 X10^3/uL (4.5-11.0)
[2021-02-01] MEDS: CIPROFLOXACIN 400 MG/200 ML PIGGYBACK 200 MG IV (10:52)
[2021-02-01 11:03] LABS: Alanine Aminotransferase 41 IU/L (<35); Albumin Globulin Ratio 1.4 (1.0-2.8); Alkaline Phosphatase 171 U/L (38-126); Aspartate Aminotransferase 89 IU/L (14-36); BUN Creatinine Ratio 23.4 (6-22); Bilirubin Total 3.4 mg/dL (0.2-1.3); Blood Urea Nitrogen 15 mg/dL (7-17); Calcium 10.1 mg/dL (8.4-10.2); Carbon Dioxide 19 mmol/L (22-32); Chloride 92 mmol/L (98-107); Estimated Glomerular Filt Rate > 60.0 mL/min (>60); Globulin 3.6 g/dL (1.7-4.1); Glucose 119 mg/dL (70-100); HEMOLYSIS < 15 (0-50); Lipase 54 U/L (23-300); Potassium 3.8 mmol/L (3.4-5.1); Sodium 132 mmol/L (137-145); Total Protein 8.6 g/dL (6.3-8.2)
[2021-02-01 11:43] LABS: Appearance Urine UA CLEAR; Bacteria Urine None Seen; Bilirubin Urine UA NEGATIVE (NEGATIVE); Color Urine UA YELLOW; Glucose Urine UA NEGATIVE (Negative); Ketones Urine UA 3+ (NEGATIVE); Leukocyte Esterase Urine UA NEGATIVE (NEGATIVE); Nitrite Urine UA NEGATIVE (Negative); Occult Blood Urine UA 1+ (Negative); Protein Urine UA 1+ (Negative); Specific Gravity Urine UA <=1.005 (1.000-1.035); WBC Urine None Seen (0-5/HPF); pH Urine UA 6.5 (4.5-8.0)
[2021-02-01 11:49] LABS: Culture Indicated Urine Cult Not Indicated; Hyaline Casts Urine 0-1/LPF; RBC Urine 5-10/HPF (0-5/HPF); Squamous Epithelial Cell Urine 1-5 /HPF (0-5/HPF)
[2021-02-01] MEDS: SODIUM CHLORIDE 0.9% 1,000 ML 1000 ML IV (12:35)
--- NOTE | 2021-02-01 13:27 | DI.US.S_ITS ---
PROCEDURE: US ABDOMEN COMPLETE INDICATIONS: VOMITING TECHNIQUE: Real-time scanning was performed of the abdominal and retroperitoneal organs, with image documentation. COMPARISON: [facility], US, ABDOMEN COMPLETE, 03/23/2016, 1:42. [facility], CT, CT ABDOMEN PELVIS W CON, 02/01/2021, 10:26. FINDINGS: Liver: The liver demonstrates enlarged size. The liver demonstrates generalized moderately increased echogenicity. This decreases ultrasound sensitivity for detection of hepatic masses. The main portal vein is normal in size at 1 cm and is patent. It is overall not well seen. Gallbladder: Has been removed Biliary ducts: Intrahepatic bile ducts are non-dilated. Extrahepatic bile duct caliber measures 9 mm. Normal is 6-7 mm or less in diameter, or 10 mm or less post-cholecystectomy. Pancreas: Visualized portions of the pancreas are sonographically normal. Spleen: The spleen is enlarged, measuring 14 cm Kidneys: Kidneys are normal in size and echotexture. Right kidney measures 13.3 cm long; left kidney measures 10.8 cm long. No hydronephrosis or nephrolithiasis. No solid masses. Aorta: The mid aorta demonstrates normal caliber. The mid and distal aorta are not well seen, secondary to overlying bowel gas. Iliacs: Not seen, obscured by overlying bowel gas. IVC: Not seen, obscured by overlying bowel gas. Miscellaneous: No free abdominal fluid. IMPRESSION: Limited study, without a cause of vomiting identified. Enlarged, fatty liver. Splenomegaly. Status post cholecystectomy, without biliary dilatation. Dictated by: Domingo Em M.D. on 02/01/2021 at 15:20 Approved by: Domingo Em M.D. on 02/01/2021 at 15:22
[2021-02-01] MEDS: PANTOPRAZOLE 40 MG VIAL IV (13:35)
[2021-02-01] MEDS: LORazepam 2 MG/ML INJ 0.5 MG IV (13:40)
[2021-02-01 14:03] LABS: COVID19 - ADMIT (NP swab/PCR) Negative (Negative)
[2021-02-01 14:37] LABS: Ethanol (ETOH) < 10 mg/dL; Magnesium 1.8 mg/dL (1.6-2.3); Phosphorous 1.6 mg/dL (2.5-4.5)
[2021-02-01] MEDS: THIAMINE 100 MG in SODIUM CHLORIDE 0.9% 100 ML 404 ML IV (15:00)
[2021-02-01 15:22] LABS: TSH w/ Reflex to FT4 1.39 uIU/mL (0.47-4.68)
[2021-02-01] MEDS: MAGNESIUM SULFATE 2 GM/50 ML PIGGYBACK IV (15:48)
[2021-02-01 15:50] LABS: INR 1.2 (0.9-1.3); Prothrombin Time 13.2 SECONDS (10.1-12.7)
[2021-02-01] MEDS: POTASSIUM PHOSPHATE 15 MMOL in DEXTROSE 5% IN WATER 250 ML 63.75 ML IV (15:52)
--- NOTE | 2021-02-01 15:56 | PM.HP.1 ---
History of Present Illness History of Present Illness Date Patient Seen: 02/01/21 Time Patient Seen: 14:56 Chief complaint: vomiting for two days, diarrhea, fever Narrative: Ms. De La Fuente is a 60W with PMH HTN, cholecystectomy, hysterectomy R breast cancer s/p lumpectomy, abdominal hernia repair, hepatomegaly, GERD with barretts esophagus who comes in to the ED with abdominal pain, vomiting, diarrhea. She noted this started two days ago. She has not eaten anything different from the rest of her family, and none of them have similar symptoms. She noted a fever to Tmax 100-101. She has no chest pain, shortness of breath, coughing, dysuria. Her pain is located in the umbilical and left abdominal region. She has noted no blood in her stools or in her vomit. She is tremulous. She has had difficulty keeping down food and liquid. In the ED, vitals notable for tachycardia in the 110s, and hypertensive in the systoilc 150s. Her other vitals were normal. Labs notable for WBC of 14.1, INR 1.2, Sodium 132, CO2 19, creatinine 0.64, phosphorous 1.6. Bili 3.4, AST 89, ALT 41, alk phos 171. UA shows protein, ketones, blood. Alcohol negative. CT shows striated hypoenhancement of both kidneys that could be related to phase enhancement. No renal calculi. Also noted hepatosplenomegaly. Small hiatal hernia and distal esophageal wall thickening Family history: brother newly diagnosed lung cancer Patient History Medical History Johnston esophagus Breast cancer, right GERD (gastroesophageal reflux disease) Hypertension Surgical History History of hysterectomy Hx of cholecystectomy Hx of hernia repair Family & Social History Social History: household members spouse Prior Living Arrangements House Safety & Behavioral: Feels Safe in Current Yes Environment Been Physically Hurt or No Threatened By a Person Suicidal Ideation Description None Tobacco & Substance use: Tobacco type cigarettes Smoking Status Former smoker alcohol intake current alcohol intake frequency 0-2 drinks per day Substance Use Type does not use Meds Home Medications and Allergies Home Medications Medication Instructions Recorded Confirmed Type amlodipine 10 mg PO QDAY #30 tab 03/30/16 02/01/21 Rx cholestyramine (with sugar) 1 ea PO DAILY PRN 02/01/21 02/01/21 History clobetasol 1 applic TOPICAL DAILY PRN 02/01/21 02/01/21 History hydroxyzine HCl 25 mg PO Q8H PRN 02/01/21 02/01/21 History lisinopril 40 mg PO BEDTIME 02/01/21 02/01/21 History omeprazole 20 mg PO BID 02/01/21 02/01/21 History propranolol 20 mg PO BID PRN 02/01/21 02/01/21 History venlafaxine 225 mg PO DAILY 02/01/21 02/01/21 History Allergies Allergy/AdvReac Type Severity Reaction Status Date / Time neomycin Allergy Intermediate RASHES. Verified 02/01/21 09:33 Penicillins Allergy Intermediate RASHES ALL Verified 02/01/21 09:33 OVER, SWEELING. Review of Systems Review of Systems Narrative: 14 systems reviewed and negative aside from HPI Exam Vital Signs (past 8 hours): - 02/01/21 09:28 02/01/21 09:39 02/01/21 10:00 Temperature 98.3 F Pulse Rate 115 H 117 H 113 H Respiratory Rate 17 Blood Pressure 158/75 H Pulse Oximetry 100 95 100 02/01/21 10:30 02/01/21 11:00 02/01/21 11:30 Temperature Pulse Rate 114 H 120 H 120 H Respiratory Rate Blood Pressure Pulse Oximetry 100 98 100 02/01/21 12:00 02/01/21 13:22 Temperature 97.9 F Pulse Rate 112 H 105 H Respiratory Rate 18 Blood Pressure 127/60 Pulse Oximetry 97 99 Oxygen Delivery Method Room Air Narrative Exam Narrative: GEN: retching during exam HEENT: moist mucous membranes, PERRL NECK: no JVD, trachea midline CV: tachycardic with no murmurs PULM: clear bilaterally, no wheezes, rhonchi, rales ABD: soft, moderated tenderness over umbilical and left side of abdomen, no rebound/guarding, mildly distended, normal bowel sounds EXT: warm and well perfused with no edema SKIN: flushed skin NEURO: awake and alert, tremulous, moving all extremities, no focal deficits PSYCH: pleasant, cooperative Objective Labs Result Diagrams: 02/01/21 10:42 02/01/21 10:42 Labs: Laboratory Results - last 24 hr 02/01/21 02/01/21 02/01/21 09:35 09:35 10:42 WBC 14.1 H 11.7 H RBC 5.08 4.66 Hgb 16.2 H 14.9 Hct 47.6 H 44.1 MCV 93.7 94.7 MCH 31.9 32.0 MCHC 34.0 33.8 RDW 13.2 13.8 Plt Count 287 231 Neut % (Auto) 86.8 H 85.5 H Lymph % (Auto) 6.1 L 6.4 L [place] % (Auto) 6.7 7.8 Eos % (Auto) 0.0 L 0.0 L Baso % (Auto) 0.4 0.3 Neut # (Auto) 70834 H 81621 H Lymph # (Auto) 900 L 700 L [place] # (Auto) 900 900 Eos # (Auto) 0 0 Baso # (Auto) 100 0 PT INR Sodium 134 L Potassium 4.0 Chloride 92 L Carbon Dioxide 19 L BUN 16 Creatinine 0.72 Estimated GFR > 60.0 BUN/Creatinine Ratio 22.2 H Glucose 142 H Lactate Calcium 11.0 H Phosphorus Magnesium Total Bilirubin 4.0 H AST 96 H ALT 47 H Alkaline Phosphatase 200 H Total Protein 9.9 H* Albumin 5.4 H Globulin 4.5 H Albumin/Globulin Ratio 1.2 Lipase 59 TSH Urine Color Urine Appearance Urine pH Ur Specific [place] Urine Protein Urine Glucose (UA) Urine Ketones Urine Occult Blood Urine Nitrate Urine Bilirubin Urine Urobilinogen Ur Leukocyte Esterase Urine RBC Urine WBC Ur Squamous Epith Cells Urine Bacteria Hyaline Casts Ur Culture Indicated? Ethyl Alcohol SARS-CoV-2 (PCR) 02/01/21 02/01/21 02/01/21 10:42 10:42 10:42 WBC RBC Hgb Hct MCV MCH MCHC RDW Plt Count Neut % (Auto) Lymph % (Auto) [place] % (Auto) Eos % (Auto) Baso % (Auto) Neut # (Auto) Lymph # (Auto) [place] # (Auto) Eos # (Auto) Baso # (Auto) PT INR Sodium 132 L Potassium 3.8 Chloride 92 L Carbon Dioxide 19 L BUN 15 Creatinine 0.64 Estimated GFR > 60.0 BUN/Creatinine Ratio 23.4 H Glucose 119 H Lactate 1.0 Calcium 10.1 Phosphorus Magnesium Total Bilirubin 3.4 H AST 89 H ALT 41 H Alkaline Phosphatase 171 H Total Protein 8.6 H Albumin 5.0 Globulin 3.6 Albumin/Globulin Ratio 1.4 Lipase 54 TSH Urine Color Urine Appearance Urine pH Ur Specific [place] Urine Protein Urine Glucose (UA) Urine Ketones Urine Occult Blood Urine Nitrate Urine Bilirubin Urine Urobilinogen Ur Leukocyte Esterase Urine RBC Urine WBC Ur Squamous Epith Cells Urine Bacteria Hyaline Casts Ur Culture Indicated? Ethyl Alcohol < 10 SARS-CoV-2 (PCR) 02/01/21 02/01/21 02/01/21 10:42 10:42 11:25 WBC RBC Hgb Hct MCV MCH MCHC RDW Plt Count Neut % (Auto) Lymph % (Auto) [place] % (Auto) Eos % (Auto) Baso % (Auto) Neut # (Auto) Lymph # (Auto) [place] # (Auto) Eos # (Auto) Baso # (Auto) PT INR Sodium Potassium Chloride Carbon Dioxide BUN Creatinine Estimated GFR BUN/Creatinine Ratio Glucose Lactate Calcium Phosphorus 1.6 L Magnesium 1.8 Total Bilirubin AST ALT Alkaline Phosphatase Total Protein Albumin Globulin Albumin/Globulin Ratio Lipase TSH 1.39 Urine Color Yellow Urine Appearance Clear Urine pH 6.5 Ur Specific [place] <=1.005 Urine Protein 1+ H Urine Glucose (UA) Negative Urine Ketones 3+ H Urine Occult Blood 1+ H Urine Nitrate Negative Urine Bilirubin Negative Urine Urobilinogen 1.0 Ur Leukocyte Esterase Negative Urine RBC 5-10/hpf H Urine WBC None seen Ur Squamous Epith Cells 1-5 /hpf Urine Bacteria None seen Hyaline Casts 0-1/lpf Ur Culture Indicated? Cult not indicated Ethyl Alcohol SARS-CoV-2 (PCR) 02/01/21 02/01/21 13:00 14:55 WBC RBC Hgb Hct MCV MCH MCHC RDW Plt Count Neut % (Auto) Lymph % (Auto) [place] % (Auto) Eos % (Auto) Baso % (Auto) Neut # (Auto) Lymph # (Auto) [place] # (Auto) Eos # (Auto) Baso # (Auto) PT 13.2 H INR 1.2 Sodium Potassium Chloride Carbon Dioxide BUN Creatinine Estimated GFR BUN/Creatinine Ratio Glucose Lactate Calcium Phosphorus Magnesium Total Bilirubin AST ALT Alkaline Phosphatase Total Protein Albumin Globulin Albumin/Globulin Ratio Lipase TSH Urine Color Urine Appearance Urine pH Ur Specific [place] Urine Protein Urine Glucose (UA) Urine Ketones Urine Occult Blood Urine Nitrate Urine Bilirubin Urine Urobilinogen Ur Leukocyte Esterase Urine RBC Urine WBC Ur Squamous Epith Cells Urine Bacteria Hyaline Casts Ur Culture Indicated? Ethyl Alcohol SARS-CoV-2 (PCR) Negative Assessment & Plan Assessment & Plan narrative: Ms. De La Fuente is a 60W with PMH HTN, GERD, hepatosplenomegaly who comes in with two days of abdominal pain, nausea, vomiting, and diarrhea. 1. Abdominal pain, acute -etiology not clear currently -per patient has had a fever at home, also has leukocytosis here which make infectious etiology more likely -CT scan showed questionable striation around kidneys, but UA with no evidence of infection -she received cipro/flagyl in the ED -lipase normal -has mild transaminitis with AST>ALT in typical EtOH pattern, alcoholic hepatitis can present this way -patient denies significant EtOH use -check hepatitis serologies -check abdominal ultrasound to better image biliary and renal systems -ordered for IV PPI, zofran, benzos, and pain meds for symtpom control -checking stool cultures and cdiff for infection 2. Metabolic acidosis -noted on labs with low CO2 -no gap noted -possibly related to diarrhea -also has evidence of ketosis in urine -blood sugar here has not been grossly elevated -fasting or alcohol can also cause ketosis -ordered for thiamine 3. Hypophosphatemia -usually noted in chronic malnutrition, or EtOH use -mildly low at 1.6, but not tolerating orals -replete with IV phos 4. GERD -IV PPI as above, holding oral for now given symptoms 5. HTN -hold amlodipine, lisinopril until tolerating POs 6. Tremulousness -possibly related to metabolic disturbances and vomiting -continue IVF and electrolyte replacement -order CIWA protocol to monitor for withdrawal DIET: full liquids IVF: normal saline at 150cc/hr DVT ppx: heparin sc Code: Full, proxy is Edwin Rodriguez VTE Deep Vein Thrombosis/Pulmonary Embolism Present on Admission: No MIPS - Admit I confirm the patient?s Advance Care Plan is present, Code status is documented, Surrogate decision maker is in patient?s record [If Yes, STOP here]: Yes
[2021-02-01 17:03] LABS: Hepatitis B Surface Antigen NEGATIVE s/c (NEGATIVE)
[2021-02-01 18:27] LABS: Clostridium Difficile Tox PCR Negative for C. diff (Negative)
[2021-02-01] MEDS: LORazepam 0.5 MG TABLET PO (19:22)
[2021-02-01 21:14] LABS: Hemoglobin A1C% w Est Avg Glu 5.3 % (4.0-6.0)
[2021-02-01 21:18] LABS: Ketones (Beta-Hydroxybutyrate) 6.53 mmol/L (<0.27)
[2021-02-01] MEDS: HEPARIN 5,000 UNIT/ML VIAL 5000 UNIT SUBCUT (21:26)
[2021-02-01 21:27] LABS: Amylase 70 U/L (30-110)
[2021-02-01 21:44] LABS: Alanine Aminotransferase 35 IU/L (<35); Albumin 4.5 g/dL (3.5-5.0); Albumin Globulin Ratio 1.6 (1.0-2.8); Alkaline Phosphatase 164 U/L (38-126); Aspartate Aminotransferase 90 IU/L (14-36); BUN Creatinine Ratio 20.3 (6-22); Bilirubin Total 2.3 mg/dL (0.2-1.3); Blood Urea Nitrogen 12 mg/dL (7-17); Calcium 9.3 mg/dL (8.4-10.2); Carbon Dioxide 21 mmol/L (22-32); Chloride 98 mmol/L (98-107); Estimated Glomerular Filt Rate > 60.0 mL/min (>60); Globulin 2.9 g/dL (1.7-4.1); Glucose 58 mg/dL (70-100); HEMOLYSIS 40 (0-50); Potassium 4.1 mmol/L (3.4-5.1); Sodium 137 mmol/L (137-145); Total Protein 7.4 g/dL (6.3-8.2)
[2021-02-01 21:53] LABS: Gamma Glutamyl Transpeptidase 602 U/L (12-43); Magnesium 1.8 mg/dL (1.6-2.3)
[2021-02-01 22:46] LABS: Creatinine Urine Random 28.9 mg/dL
[2021-02-01 22:47] LABS: Phosphorous Urine Random 9.3 mg/dL
[2021-02-02] VITALS (10 sets, daily range): BP systolic 119–153; BP diastolic 63–83; PULSE 88–108; RESP 14–20; TEMP 36.1–37.2; O2SAT 93–99
[2021-02-02] MEDS: OXYCODONE IR 5 MG TABLET PO ×3 (00:24→11:32)
[2021-02-02] MEDS: SODIUM CHLORIDE 0.9% 1,000 ML 150 ML IV ×2 (01:51→08:48)
[2021-02-02 05:09] LABS: Add Manual Diff / Slide Review NO; Basophils Absolute Auto 0 /uL (0-100); Basophils Percent Auto 0.4 % (0-2); Eosinophils Absolute Auto 0 /uL (0-450); Eosinophils Percent Auto 0.2 % (2-4); Hematocrit 42.9 % (36-46); Hemoglobin 14.6 g/dL (12.0-16.0); Lymphocytes Absolute Auto 1400 /uL (1100-4500); Lymphocytes Percent Auto 19.6 % (25-40); Mean Corpuscular HGB Conc 33.9 % (30-36); Mean Corpuscular Hemoglobin 32.3 PG (26-34); Mean Corpuscular Volume 95.1 fL (80-100); Monocytes Absolute Auto 500 /uL (0-900); Monocytes Percent Auto 6.4 % (3-14); Neutrophils Absolute Auto 5300 /uL (1500-7000); Neutrophils Percent Auto 73.4 % (50-75); Platelet Count 176 X10^3/uL (150-400); Red Blood Cell Count 4.52 X10^6/uL (4.0-5.2); Red Cell Distribution Width 13.4 % (11.6-14.8); White Blood Cell Count 7.2 X10^3/uL (4.5-11.0)
[2021-02-02 05:11] LABS: Hepatitis B Core Antibody Negative (Negative)
[2021-02-02 05:15] LABS: Alanine Aminotransferase 33 IU/L (<35); Albumin Globulin Ratio 1.3 (1.0-2.8); Alkaline Phosphatase 132 U/L (38-126); Aspartate Aminotransferase 90 IU/L (14-36); BUN Creatinine Ratio 16.1 (6-22); Bilirubin Total 1.9 mg/dL (0.2-1.3); Bilirubin Unconjugated 1.1 mg/dL (0.0-1.1); Blood Urea Nitrogen 9 mg/dL (7-17); Calcium 9.5 mg/dL (8.4-10.2); Carbon Dioxide 24 mmol/L (22-32); Chloride 104 mmol/L (98-107); Estimated Glomerular Filt Rate > 60.0 mL/min (>60); Glucose 102 mg/dL (70-100); HEMOLYSIS < 15 (0-50); Magnesium 2.3 mg/dL (1.6-2.3); Sodium 139 mmol/L (137-145)
[2021-02-02 06:22] LABS: Hepatitis A Ab Total Negative (Negative)
[2021-02-02 07:15] LABS: Hepatitis B Surf Ab Qualitativ Non Reactive (.)
[2021-02-02] MEDS: MORPHINE 2 MG/ML INJ IV (07:32)
[2021-02-02] MEDS: LORazepam 2 MG/ML INJ IV ×2 (07:55→10:23)
[2021-02-02] MEDS: VENLAFAXINE ER 75 MG CAP 225 MG PO (08:40)
[2021-02-02] MEDS: MULTIVITAMIN 1 TABLET 1 TAB PO (08:40)
[2021-02-02] MEDS: chlordiazePOXIDE 10 MG CAPSULE PO (08:42)
[2021-02-02] MEDS: FOLIC ACID 1 MG TABLET PO (08:42)
[2021-02-02] MEDS: ONDANSETRON 4 MG/2 ML INJ IV ×2 (10:00→18:34)
--- NOTE | 2021-02-02 10:53 | CM.IDA ---
Initial DCP Assessment Note Pt is a 60 yo female, resident of [place], arrives with two days of abdominal pain, nausea, vomiting, and diarrhea. PMH HTN, GERD, Johnston esophagus, Breast cancer, right (in remission) PCP: Jimena nicholson Payer: [facility] Patient discussed in multidisciplinary rounds this morning. Patient continues to complain of nausea and abd pain, diet cannot be advanced this morning. RN Angelika explains medical POC now includes managing ETOH w/d, patient w/a CIWA of 18 this morning. Patient had not reported alcohol use upon admission. Met w/patient, introduced role. Patient is in obvious distress, states she is not feeling well. This MAITRE D' suggests to patient she be honest re: amount of ETOH used daily/weekly so that hospitalist can treat accordingly. Patient admits to at least a gallon of vodka every 4 days-week, she has been drinking this amount for at least one year and states she plans to quit. This MAITRE D' suggests a conversation re: HASMUKH treatment/recovery when patient feels better and patient agreeable, states I will not go to an inpatient rehab Will follow closely as medical POC unfolds. KATHLEEN Cardona Discharge Planning/Care Management CM Discharge Assessment Start: 02/02/21 10:49 Freq: Status: Active Protocol: Document 02/02/21 10:49 LEAH (Rec: 02/02/21 10:53 LEAH [id number]) Discharge Planning Assessment Assigned [employer] KATHLEEN Stafford DPOA/Assigned Designee Name Carl De La Fuente, son:[phone] Contact Information Edwin De La Fuente, spouse: Advance Directives? No History Provided By Patient,Medical Record Prior Living Arrangements House Household Members spouse Type of transporation used prior to Drives own vehicle admit Independent with ADL's Yes Is patient alert and oriented? Yes Comment Likely home w/family, will provide resources for HSAMUKH treatment/recovery Discharge Plan Home Transportation Arrangement Family/friends Referrals Initiated None needed Additional Comment At this time
--- NOTE | 2021-02-02 11:03 | PM.PN.1 ---
Subjective Subjective Date Patient Seen: 02/02/21 Time Patient Seen: 08:03 Interval history: Yesterday she felt better after the ativan. Overnight she was tremulous. Today she says she had night sweats. [place] nauseous. She tried to eat food and started vomiting. Feeling anxious. She is also more tachycardic in the 100s. After further discussion she acknowledges drinking approximately 1 gallon of vodka every 2 days, and can drink a gallon of vodka in a day. Exam Vital Signs (past 8 hours): - 02/02/21 07:00 02/02/21 08:10 Temperature 98 F Pulse Rate 97 H 104 H Respiratory Rate 20 20 Blood Pressure 150/75 H Pulse Oximetry 97 Oxygen Delivery Method Room Air Oxygen Flow Rate 0 Narrative Exam Narrative: GEN: anxious, flushed, sweating HEENT: moist mucous membranes, PERRL NECK: no JVD, trachea midline CV: tachycardic with no murmurs PULM: clear bilaterally, no wheezes, rhonchi, rales ABD: soft, moderated tenderness over umbilical and left side of abdomen, no rebound/guarding, mildly distended, normal bowel sounds EXT: warm and well perfused with no edema SKIN: flushed skin NEURO: awake and alert, tremulous, moving all extremities, no focal deficits PSYCH: pleasant, cooperative Objective Labs Result Diagrams: 02/02/21 04:46 02/02/21 04:46 Labs: Laboratory Results - last 24 hr 02/01/21 02/01/21 02/01/21 09:35 10:42 10:42 WBC RBC Hgb Hct MCV MCH MCHC RDW Plt Count Neut % (Auto) Lymph % (Auto) [place] % (Auto) Eos % (Auto) Baso % (Auto) Neut # (Auto) Lymph # (Auto) [place] # (Auto) Eos # (Auto) Baso # (Auto) PT INR Sodium 132 L Potassium 3.8 Chloride 92 L Carbon Dioxide 19 L BUN 15 Creatinine 0.64 Estimated GFR > 60.0 BUN/Creatinine Ratio 23.4 H Glucose 119 H Hemoglobin A1c Lactate 1.0 Calcium 10.1 Phosphorus Magnesium Total Bilirubin 3.4 H Conjugated Bilirubin Unconjugated Bilirubin GGT AST 89 H ALT 41 H Alkaline Phosphatase 171 H Total Protein 8.6 H Albumin 5.0 Globulin 3.6 Albumin/Globulin Ratio 1.4 Amylase 70 Lipase 54 TSH Urine Color Urine Appearance Urine pH Ur Specific [place] Urine Protein Urine Glucose (UA) Urine Ketones Urine Occult Blood Urine Nitrate Urine Bilirubin Urine Urobilinogen Ur Leukocyte Esterase Urine RBC Urine WBC Ur Squamous Epith Cells Urine Bacteria Hyaline Casts Ur Culture Indicated? Ur Random Phosphorus Urine Creatinine Nasal Screen MRSA (PCR) Ethyl Alcohol Ketones C. difficile Tox (PCR) SARS-CoV-2 (PCR) Hepatitis A Total & IgM Hep Bs Antigen Hep Bs Antibody Hep B Core Total Ab 02/01/21 02/01/21 02/01/21 10:42 10:42 10:42 WBC RBC Hgb Hct MCV MCH MCHC RDW Plt Count Neut % (Auto) Lymph % (Auto) [place] % (Auto) Eos % (Auto) Baso % (Auto) Neut # (Auto) Lymph # (Auto) [place] # (Auto) Eos # (Auto) Baso # (Auto) PT INR Sodium Potassium Chloride Carbon Dioxide BUN Creatinine Estimated GFR BUN/Creatinine Ratio Glucose Hemoglobin A1c Lactate Calcium Phosphorus 1.6 L Magnesium 1.8 Total Bilirubin Conjugated Bilirubin Unconjugated Bilirubin GGT AST ALT Alkaline Phosphatase Total Protein Albumin Globulin Albumin/Globulin Ratio Amylase Lipase TSH Urine Color Urine Appearance Urine pH Ur Specific [place] Urine Protein Urine Glucose (UA) Urine Ketones Urine Occult Blood Urine Nitrate Urine Bilirubin Urine Urobilinogen Ur Leukocyte Esterase Urine RBC Urine WBC Ur Squamous Epith Cells Urine Bacteria Hyaline Casts Ur Culture Indicated? Ur Random Phosphorus Urine Creatinine Nasal Screen MRSA (PCR) Ethyl Alcohol < 10 Ketones C. difficile Tox (PCR) SARS-CoV-2 (PCR) Hepatitis A Total & IgM Hep Bs Antigen Negative Hep Bs Antibody Hep B Core Total Ab 02/01/21 02/01/21 02/01/21 10:42 10:42 10:42 WBC RBC Hgb Hct MCV MCH MCHC RDW Plt Count Neut % (Auto) Lymph % (Auto) [place] % (Auto) Eos % (Auto) Baso % (Auto) Neut # (Auto) Lymph # (Auto) [place] # (Auto) Eos # (Auto) Baso # (Auto) PT INR Sodium Potassium Chloride Carbon Dioxide BUN Creatinine Estimated GFR BUN/Creatinine Ratio Glucose Hemoglobin A1c 5.3 Lactate Calcium Phosphorus Magnesium Total Bilirubin Conjugated Bilirubin Unconjugated Bilirubin GGT AST ALT Alkaline Phosphatase Total Protein Albumin Globulin Albumin/Globulin Ratio Amylase Lipase TSH 1.39 Urine Color Urine Appearance Urine pH Ur Specific [place] Urine Protein Urine Glucose (UA) Urine Ketones Urine Occult Blood Urine Nitrate Urine Bilirubin Urine Urobilinogen Ur Leukocyte Esterase Urine RBC Urine WBC Ur Squamous Epith Cells Urine Bacteria Hyaline Casts Ur Culture Indicated? Ur Random Phosphorus Urine Creatinine Nasal Screen MRSA (PCR) Ethyl Alcohol Ketones 6.53 H C. difficile Tox (PCR) SARS-CoV-2 (PCR) Hepatitis A Total & IgM Hep Bs Antigen Hep Bs Antibody Hep B Core Total Ab 02/01/21 02/01/21 02/01/21 11:25 11:25 11:25 WBC RBC Hgb Hct MCV MCH MCHC RDW Plt Count Neut % (Auto) Lymph % (Auto) [place] % (Auto) Eos % (Auto) Baso % (Auto) Neut # (Auto) Lymph # (Auto) [place] # (Auto) Eos # (Auto) Baso # (Auto) PT INR Sodium Potassium Chloride Carbon Dioxide BUN Creatinine Estimated GFR BUN/Creatinine Ratio Glucose Hemoglobin A1c Lactate Calcium Phosphorus Magnesium Total Bilirubin Conjugated Bilirubin Unconjugated Bilirubin GGT AST ALT Alkaline Phosphatase Total Protein Albumin Globulin Albumin/Globulin Ratio Amylase Lipase TSH Urine Color Yellow Urine Appearance Clear Urine pH 6.5 Ur Specific [place] <=1.005 Urine Protein 1+ H Urine Glucose (UA) Negative Urine Ketones 3+ H Urine Occult Blood 1+ H Urine Nitrate Negative Urine Bilirubin Negative Urine Urobilinogen 1.0 Ur Leukocyte Esterase Negative Urine RBC 5-10/hpf H Urine WBC None seen Ur Squamous Epith Cells 1-5 /hpf Urine Bacteria None seen Hyaline Casts 0-1/lpf Ur Culture Indicated? Cult not indicated Ur Random Phosphorus 9.3 Urine Creatinine 28.9 Nasal Screen MRSA (PCR) Ethyl Alcohol Ketones C. difficile Tox (PCR) SARS-CoV-2 (PCR) Hepatitis A Total & IgM Hep Bs Antigen Hep Bs Antibody Hep B Core Total Ab 02/01/21 02/01/21 02/01/21 13:00 14:55 14:55 WBC RBC Hgb Hct MCV MCH MCHC RDW Plt Count Neut % (Auto) Lymph % (Auto) [place] % (Auto) Eos % (Auto) Baso % (Auto) Neut # (Auto) Lymph # (Auto) [place] # (Auto) Eos # (Auto) Baso # (Auto) PT 13.2 H INR 1.2 Sodium Potassium Chloride Carbon Dioxide BUN Creatinine Estimated GFR BUN/Creatinine Ratio Glucose Hemoglobin A1c Lactate Calcium Phosphorus Magnesium Total Bilirubin Conjugated Bilirubin Unconjugated Bilirubin GGT AST ALT Alkaline Phosphatase Total Protein Albumin Globulin Albumin/Globulin Ratio Amylase Lipase TSH Urine Color Urine Appearance Urine pH Ur Specific [place] Urine Protein Urine Glucose (UA) Urine Ketones Urine Occult Blood Urine Nitrate Urine Bilirubin Urine Urobilinogen Ur Leukocyte Esterase Urine RBC Urine WBC Ur Squamous Epith Cells Urine Bacteria Hyaline Casts Ur Culture Indicated? Ur Random Phosphorus Urine Creatinine Nasal Screen MRSA (PCR) Ethyl Alcohol Ketones C. difficile Tox (PCR) SARS-CoV-2 (PCR) Negative Hepatitis A Total & IgM Hep Bs Antigen Hep Bs Antibody Non reactive Hep B Core Total Ab 02/01/21 02/01/21 02/01/21 14:55 14:55 14:55 WBC RBC Hgb Hct MCV MCH MCHC RDW Plt Count Neut % (Auto) Lymph % (Auto) [place] % (Auto) Eos % (Auto) Baso % (Auto) Neut # (Auto) Lymph # (Auto) [place] # (Auto) Eos # (Auto) Baso # (Auto) PT INR Sodium 137 Potassium 4.1 Chloride 98 Carbon Dioxide 21 L BUN 12 Creatinine 0.59 Estimated GFR > 60.0 BUN/Creatinine Ratio 20.3 Glucose 58 L Hemoglobin A1c Lactate Calcium 9.3 Phosphorus Magnesium Total Bilirubin 2.3 H Conjugated Bilirubin Unconjugated Bilirubin GGT AST 90 H ALT 35 H Alkaline Phosphatase 164 H Total Protein 7.4 Albumin 4.5 Globulin 2.9 Albumin/Globulin Ratio 1.6 Amylase Lipase TSH Urine Color Urine Appearance Urine pH Ur Specific [place] Urine Protein Urine Glucose (UA) Urine Ketones Urine Occult Blood Urine Nitrate Urine Bilirubin Urine Urobilinogen Ur Leukocyte Esterase Urine RBC Urine WBC Ur Squamous Epith Cells Urine Bacteria Hyaline Casts Ur Culture Indicated? Ur Random Phosphorus Urine Creatinine Nasal Screen MRSA (PCR) Ethyl Alcohol Ketones C. difficile Tox (PCR) SARS-CoV-2 (PCR) Hepatitis A Total & IgM Negative Hep Bs Antigen Hep Bs Antibody Hep B Core Total Ab Negative 02/01/21 02/01/21 02/01/21 14:55 14:55 15:00 WBC RBC Hgb Hct MCV MCH MCHC RDW Plt Count Neut % (Auto) Lymph % (Auto) [place] % (Auto) Eos % (Auto) Baso % (Auto) Neut # (Auto) Lymph # (Auto) [place] # (Auto) Eos # (Auto) Baso # (Auto) PT INR Sodium Potassium Chloride Carbon Dioxide BUN Creatinine Estimated GFR BUN/Creatinine Ratio Glucose Hemoglobin A1c Lactate Calcium Phosphorus Magnesium 1.8 Total Bilirubin Conjugated Bilirubin Unconjugated Bilirubin GGT 602 H AST ALT Alkaline Phosphatase Total Protein Albumin Globulin Albumin/Globulin Ratio Amylase Lipase TSH Urine Color Urine Appearance Urine pH Ur Specific [place] Urine Protein Urine Glucose (UA) Urine Ketones Urine Occult Blood Urine Nitrate Urine Bilirubin Urine Urobilinogen Ur Leukocyte Esterase Urine RBC Urine WBC Ur Squamous Epith Cells Urine Bacteria Hyaline Casts Ur Culture Indicated? Ur Random Phosphorus Urine Creatinine Nasal Screen MRSA (PCR) Negative for mrsa Ethyl Alcohol Ketones C. difficile Tox (PCR) SARS-CoV-2 (PCR) Hepatitis A Total & IgM Hep Bs Antigen Hep Bs Antibody Hep B Core Total Ab 02/01/21 02/02/21 02/02/21 17:30 04:46 04:46 WBC 7.2 RBC 4.52 Hgb 14.6 Hct 42.9 MCV 95.1 MCH 32.3 MCHC 33.9 RDW 13.4 Plt Count 176 Neut % (Auto) 73.4 Lymph % (Auto) 19.6 L [place] % (Auto) 6.4 Eos % (Auto) 0.2 L Baso % (Auto) 0.4 Neut # (Auto) 5300 Lymph # (Auto) 1400 [place] # (Auto) 500 Eos # (Auto) 0 Baso # (Auto) 0 PT INR Sodium 139 Potassium 4.0 Chloride 104 Carbon Dioxide 24 BUN 9 Creatinine 0.56 Estimated GFR > 60.0 BUN/Creatinine Ratio 16.1 Glucose 102 H Hemoglobin A1c Lactate Calcium 9.5 Phosphorus Magnesium Total Bilirubin Conjugated Bilirubin Unconjugated Bilirubin GGT AST ALT Alkaline Phosphatase Total Protein Albumin Globulin Albumin/Globulin Ratio Amylase Lipase TSH Urine Color Urine Appearance Urine pH Ur Specific [place] Urine Protein Urine Glucose (UA) Urine Ketones Urine Occult Blood Urine Nitrate Urine Bilirubin Urine Urobilinogen Ur Leukocyte Esterase Urine RBC Urine WBC Ur Squamous Epith Cells Urine Bacteria Hyaline Casts Ur Culture Indicated? Ur Random Phosphorus Urine Creatinine Nasal Screen MRSA (PCR) Ethyl Alcohol Ketones C. difficile Tox (PCR) Negative for c. diff SARS-CoV-2 (PCR) Hepatitis A Total & IgM Hep Bs Antigen Hep Bs Antibody Hep B Core Total Ab 02/02/21 04:46 WBC RBC Hgb Hct MCV MCH MCHC RDW Plt Count Neut % (Auto) Lymph % (Auto) [place] % (Auto) Eos % (Auto) Baso % (Auto) Neut # (Auto) Lymph # (Auto) [place] # (Auto) Eos # (Auto) Baso # (Auto) PT INR Sodium Potassium Chloride Carbon Dioxide BUN Creatinine Estimated GFR BUN/Creatinine Ratio Glucose Hemoglobin A1c Lactate Calcium Phosphorus 2.0 L Magnesium 2.3 Total Bilirubin 1.9 H Conjugated Bilirubin 0.0 Unconjugated Bilirubin 1.1 GGT AST 90 H ALT 33 Alkaline Phosphatase 132 H Total Protein 7.0 Albumin 4.0 Globulin 3.0 Albumin/Globulin Ratio 1.3 Amylase Lipase TSH Urine Color Urine Appearance Urine pH Ur Specific [place] Urine Protein Urine Glucose (UA) Urine Ketones Urine Occult Blood Urine Nitrate Urine Bilirubin Urine Urobilinogen Ur Leukocyte Esterase Urine RBC Urine WBC Ur Squamous Epith Cells Urine Bacteria Hyaline Casts Ur Culture Indicated? Ur Random Phosphorus Urine Creatinine Nasal Screen MRSA (PCR) Ethyl Alcohol Ketones C. difficile Tox (PCR) SARS-CoV-2 (PCR) Hepatitis A Total & IgM Hep Bs Antigen Hep Bs Antibody Hep B Core Total Ab PFSH Medical History Johnston esophagus Breast cancer, right GERD (gastroesophageal reflux disease) Hypertension Surgical History History of hysterectomy Hx of cholecystectomy Hx of hernia repair Social History household members: spouse Smoking Status: Former smoker alcohol intake: current Assessment & Plan Assessment & Plan narrative: Ms. De La Fuente is a 60W with PMH HTN, GERD, hepatosplenomegaly who comes in with two days of abdominal pain, nausea, vomiting, and diarrhea. 1. Abdominal pain, acute -etiology likely related to alcoholic hepatitis, DF on admission was 6, currently 4, steroids not indicated -per patient has had a fever at home, also has leukocytosis -CT scan showed questionable striation around kidneys, but UA with no evidence of infection, abdominal ultrasound showed no acute process -she received cipro/flagyl in the ED -lipase normal -has mild transaminitis with AST>ALT in typical EtOH pattern, also elevated bilirubin, 02/02 labs are mildly improving alcoholic hepatitis can present this way -patient now acknowledges significant alcohol abuse -checking viral hepatitis serologies -ordered for IV PPI, zofran, benzos, and pain meds for symtpom control -checking stool cultures for infection, c diff negative 2. EtOH withdrawal and EtOH abuse -patient initially denied significant alcohol use, but now says can drink as much as a gallon of vodka in a day -last use per patient was Sunday 01/28 -has been on CIWA, but continues to remain symptomatic despite benzos -given significant alcohol use, will phenobarbital load, since has gotten benzos will avoid 10mg/kg for now, and order 130mg IV dose -will likely then need additional phenobarb at 64.8 QID, with taper -continue CIWA prn -ordered thiamine, folate, MVI -SW eval 2. Alcoholic ketoacidosis -noted on labs with low CO2 -no gap noted now, initially had anion gap with ketones in urine -blood sugar here has not been grossly elevated -ordered for thiamine 3. Hypophosphatemia -related to alcohol abuse -mildly low at 1.6, but not tolerating orals -replete with IV phos 4. GERD -IV PPI as above, holding oral for now given symptoms 5. HTN -hold amlodipine, lisinopril until tolerating POs DIET: full liquids IVF: normal saline at 150cc/hr DVT ppx: heparin sc Code: Full, proxy is Edwin Rodriguez VTE Deep Vein Thrombosis/Pulmonary Embolism Present on Admission: No
--- NOTE | 2021-02-02 11:05 | PC.NURSE ---
Addendum entered by Angelika Miller R.N. 02/02/21 15:10: Pt sister and daughter called to update this RN about Patients etoh intake, this has been longstanding, and Pt s family is under the impression there is 1/5 to 1/2 gal of vodka consumed daily. Pt ok'd release of information to sister and to daughter. UPdated on POC and challenges raised with eoth w/d complications. Addendum entered by Angelika Miller R.N. 02/02/21 14:37: Pt has been resting comfortably since getting the IV Phenobarbital, when awakened reports nausea remains, tremors noticable at that time. Changed PO dose due @ 1500 for IV additional 130mg per order. Addendum entered by Angelika Miller R.N. 02/02/21 12:15: Per Dr Roberts, with starting Phenobarbital, the Ativan, CIWA protocol will not be followed, adjusting for meds on board. Pt continues with c/o nausea, dry heaves. After Ativan and Zofran. Original Note: Pt reporting abd pain 10/10 at start of shift. Pt is drenched in sweat and tremors to BUE significant enough making holding a cup of water impossible. CIWA score 18. Medicated per protocol with Ativan, Pt is dry heaving off and on with significant improvment after Ativan dosing. Seizure pads in place, Tele ST. Assist of 1 to BR for safety, as gait is unsteady. Pt is not very forthcoming with amount of alcohol drank at home, varied, but it is about 1/2-1 gallon of vodka daily. Per Pt. Ciwa scores have been responsive to IV Ativan but pt continues to have nausea/dry heaving.
[2021-02-02] MEDS: THIAMINE 100 MG in SODIUM CHLORIDE 0.9% 100 ML 404 ML IV (11:27)
[2021-02-02] MEDS: POTASSIUM PHOSPHATE 15 MMOL in DEXTROSE 5% IN WATER 250 ML 63.75 ML IV (11:27)
[2021-02-02] MEDS: PANTOPRAZOLE 40 MG VIAL IV (11:28)
[2021-02-02] MEDS: HEPARIN 5,000 UNIT/ML VIAL 5000 UNIT SUBCUT ×2 (11:29→20:47)
[2021-02-02] MEDS: PHENobarbital 130 MG/ML VIAL IV ×2 (12:14→14:53)
[2021-02-02] MEDS: PHENobarbitaL 32.4 MG TABLET 64.8 MG PO ×2 (16:27→21:43)
[2021-02-02] MEDS: SODIUM CHLORIDE 0.9% 1,000 ML 100 ML IV (16:28)
[2021-02-03] VITALS (16 sets, daily range): BP systolic 121–148; BP diastolic 70–96; PULSE 88–104; RESP 14–19; TEMP 35.8–36.6; O2SAT 93–100
[2021-02-03] MEDS: LORazepam 2 MG/ML INJ IV ×5 (00:37→14:44)
[2021-02-03] MEDS: OXYCODONE IR 5 MG TABLET PO ×4 (00:37→20:43)
[2021-02-03] MEDS: PHENobarbitaL 32.4 MG TABLET 64.8 MG PO (04:18)
[2021-02-03 04:24] LABS: Hematocrit 37.9 % (36-46); Hemoglobin 13.1 g/dL (12.0-16.0); Mean Corpuscular HGB Conc 34.5 % (30-36); Mean Corpuscular Hemoglobin 32.2 PG (26-34); Mean Corpuscular Volume 93.3 fL (80-100); Platelet Count 143 X10^3/uL (150-400); Red Blood Cell Count 4.06 X10^6/uL (4.0-5.2); Red Cell Distribution Width 13.1 % (11.6-14.8); White Blood Cell Count 4.9 X10^3/uL (4.5-11.0)
[2021-02-03 04:34] LABS: Ammonia (NH3) < 9 umol/L (9-30)
[2021-02-03 04:35] LABS: Alanine Aminotransferase 31 IU/L (<35); Albumin 3.2 g/dL (3.5-5.0); Albumin Globulin Ratio 1.2 (1.0-2.8); Alkaline Phosphatase 113 U/L (38-126); Aspartate Aminotransferase 94 IU/L (14-36); BUN Creatinine Ratio 10.3 (6-22); Bilirubin Total 1.5 mg/dL (0.2-1.3); Blood Urea Nitrogen 4 mg/dL (7-17); Calcium 8.5 mg/dL (8.4-10.2); Carbon Dioxide 27 mmol/L (22-32); Chloride 101 mmol/L (98-107); Estimated Glomerular Filt Rate > 60.0 mL/min (>60); Globulin 2.7 g/dL (1.7-4.1); Glucose 86 mg/dL (70-100); HEMOLYSIS < 15 (0-50); Phosphorous 2.9 mg/dL (2.5-4.5); Potassium 2.9 mmol/L (3.4-5.1); Sodium 136 mmol/L (137-145); Total Protein 5.9 g/dL (6.3-8.2)
[2021-02-03] MEDS: POTASSIUM CHLORIDE IN WATER 10 MEQ/100 ML PIGGYBACK 100 MEQ IV ×8 (05:17→15:49)
[2021-02-03] MEDS: SODIUM CHLORIDE 0.9% 1,000 ML 100 ML IV ×2 (05:19→15:49)
[2021-02-03] MEDS: PANTOPRAZOLE 40 MG VIAL IV (07:33)
[2021-02-03] MEDS: ONDANSETRON 4 MG/2 ML INJ IV (07:36)
[2021-02-03] MEDS: ACETAMINOPHEN 325 MG TABLET 650 MG PO ×2 (07:37→15:53)
--- NOTE | 2021-02-03 07:55 | DI.CT.S_ITS ---
PROCEDURE: CT HEAD/BRAIN WO CON INDICATIONS: 2 days of emesis, fever. TECHNIQUE: Noncontrast 4.5 mm thick angled axial sections acquired from the foramen magnum to the vertex, with coronal and sagittal reformats. For radiation dose reduction, the following was used: automated exposure control, adjustment of mA and/or kV according to patient size. COMPARISON: [facility], CT, CT ABDOMEN PELVIS W CON, 02/03/2021, 8:10. FINDINGS: Image quality: Excellent. CSF spaces: Basal cisterns are patent. No extra-axial fluid collections. Ventricles are normal in size and shape. Brain: No midline shift. No intracranial masses or hemorrhage. [place]-white matter interface is normal. Skull and face: Calvarium and visualized facial bones are intact, without suspicious lesions. Sinuses: Visualized sinuses and mastoids are clear. IMPRESSION: Normal for age, source of current symptoms is not found. Dictated by: Dylan Espinoza M.D. on 02/03/2021 at 11:00 Approved by: Dylan Espinoza M.D. on 02/03/2021 at 11:01
--- NOTE | 2021-02-03 08:00 | DI.CT.S_ITS ---
PROCEDURE: CT ABDOMEN PELVIS W CON INDICATIONS: Altered mental status, confusion, possible infection. TECHNIQUE: After the administration of intravenous contrast, axial sections acquired from the lung bases to the pubic symphysis. Coronal and sagittal reformats were performed. For radiation dose reduction, the following was used: automated exposure control, adjustment of mA and/or kV according to patient size. COMPARISON: [facility], CT, CT ABDOMEN PELVIS W CON, 02/01/2021, 10:26. [facility], CT, ABDOMEN/PELVIS WITH CONTRAST, 03/26/2016, 9:48. FINDINGS: Image quality: Partially limited by patient motion during image acquisition.. Lung bases: Unremarkable, motion artifact blurring portion of the imaging. Heart: No significant findings. ABDOMEN: Liver: Diffusely prominently fatty infiltrated, enlarged with a craniocaudad length of 22 cm. Secondary parenchymal heterogeneity.. Gallbladder: Previously resected Biliary ducts: Unremarkable. Pancreas: Unremarkable, adjacent duodenal diverticulum which is noninflamed adjacent to the pancreatic head. Spleen: Unremarkable enhancement pattern but enlarged craniocaudad with length of 14.5 cm. Adrenal Glands: Unremarkable. Kidneys and Ureters: Unremarkable. Stomach and Bowel: Stomach, small bowel loops, and colon are unremarkable. Peritoneum: No abnormal intraperitoneal fluid. No free air. Varices at the right pericolic gutter. Ventral Wall: No hernias. Abdominal Nodes: No retroperitoneal or mesenteric adenopathy by size criteria. Vessels: Aorta and inferior vena cava are normal in size. PELVIS: Pelvic Organs: Unremarkable. Bladder: Unremarkable. Pelvic Nodes: No enlarged lymph nodes. Miscellaneous: No hernias are seen. Normal appendix found right lower quadrant. Sigmoid diverticulosis without acute diverticulitis. Bones: Unremarkable. IMPRESSION: Hepatosplenomegaly with prominent fatty infiltration producing low-attenuation and heterogeneity of the liver parenchyma. No ascites is found but there are varices along the right pericolic gutter. Early portal hypertension. No infection found, normal appendix identified. Mild patient motion during image acquisition. Please consider hepatic insufficiency as potential etiology of altered mental status. Due to a technical issue the CT scanning of the abdomen/pelvis was initiated high within the chest extending into the upper lobes bilaterally almost to the lung apices. No pneumonia or neoplasm in that area is suspected but patient breathing motion did mildly blur the lung parenchyma anatomy through the chest. CHF or pneumonia is not suspected. Dictated by: Dylan Espinoza M.D. on 02/03/2021 at 9:11 Approved by: Dylan Espinoza M.D. on 02/03/2021 at 9:19
--- NOTE | 2021-02-03 08:51 | PC.NURSE ---
Addendum entered by Angelika Miller R.N. 02/03/21 14:54: Pt less impulsive this afternoon, able to use BSC for loose stool, CIWA 9, medicated per emar. Addendum entered by Angelika Miller R.N. 02/03/21 14:12: Pt continues with elevated CIWA scores, though mentation is improved. Pt is more aware and can answer appropriately. CIWA 10 most recently. PARK has resolved. Nausea persistent. Zofran given and ativan. Resting quietly at present, additional K riders infusing. Original Note: AM shift Start of shift Pt c/o excessive sweating, on assessment, Pt is drenched in sweat, reporting worsening PARK, and nausea, tremors significant, and now c/o hallucinations overnight/this am. Pt understands that these are not real it seems strange though some impulsive behaviors when getting up to change bedding, Pt significant'y less steady with ambulation this shift.
[2021-02-03] MEDS: HEPARIN 5,000 UNIT/ML VIAL 5000 UNIT SUBCUT ×2 (09:21→20:43)
[2021-02-03] MEDS: THIAMINE 100 MG in SODIUM CHLORIDE 0.9% 100 ML 404 ML IV (09:21)
[2021-02-03 12:13] LABS: Osmolality, Serum 289 mOsmol/kg (275-295)
[2021-02-03] MEDS: CHOLESTYRAMINE/ASPARTAME 4 GM PACK PO (12:17)
[2021-02-03] MEDS: VENLAFAXINE ER 75 MG CAP 225 MG PO (12:17)
--- NOTE | 2021-02-03 12:17 | CM.DPNOTE ---
DCP Cont Patient discussed in multidisciplinary rounds this morning. Patient's w/d symptoms have increased this morning. This APPLE PACKING HEADER will continue to follow closely as medical POC unfolds. Can plan to discuss ETOH/HASMUKH treatment resources w/patient once appropriate, and if patient agreeable to such JW
[2021-02-03] MEDS: FOLIC ACID 1 MG TABLET PO (12:18)
[2021-02-03] MEDS: MULTIVITAMIN 1 TABLET 1 TAB PO (12:18)
--- NOTE | 2021-02-03 15:03 | PM.PN.1 ---
Subjective Subjective Date Patient Seen: 02/03/21 Time Patient Seen: 08:03 Interval history: Today she feels worse. She has some hallucinations, which she realizes are hallucinations. Still had sweats at night. Feeling tearful. Her tremulousness has improved. Exam Vital Signs (past 8 hours): - 02/03/21 07:30 02/03/21 07:55 02/03/21 12:00 Temperature 97.2 F L 97.2 F L Pulse Rate 93 H 104 H 95 H Respiratory Rate 18 14 18 Blood Pressure 141/84 H 131/72 Pulse Oximetry 98 93 02/03/21 13:45 Temperature Pulse Rate 99 H Respiratory Rate 14 Blood Pressure Pulse Oximetry Oxygen Delivery Method Room Air Oxygen Flow Rate 0 Narrative Exam Narrative: GEN: anxious, flushed, sweating HEENT: moist mucous membranes, PERRL NECK: no JVD, trachea midline CV: tachycardic with no murmurs PULM: clear bilaterally, no wheezes, rhonchi, rales ABD: soft, moderate tenderness over umbilical and left side of abdomen, no rebound/guarding, mildly distended, normal bowel sounds EXT: warm and well perfused with no edema SKIN: flushed skin NEURO: awake and alert, tremulous, moving all extremities, no focal deficits PSYCH: pleasant, cooperative Objective Labs Result Diagrams: 02/03/21 04:08 02/03/21 04:08 Labs: Laboratory Results - last 24 hr 02/01/21 02/03/21 02/03/21 09:35 04:08 04:08 WBC 4.9 RBC 4.06 Hgb 13.1 Hct 37.9 MCV 93.3 MCH 32.2 MCHC 34.5 RDW 13.1 Plt Count 143 L Sodium 136 L Potassium 2.9 L Chloride 101 Carbon Dioxide 27 BUN 4 L Creatinine 0.39 L Estimated GFR > 60.0 BUN/Creatinine Ratio 10.3 Glucose 86 Serum Osmolality 289 Calcium 8.5 Phosphorus 2.9 Total Bilirubin 1.5 H Conjugated Bilirubin 0.0 Unconjugated Bilirubin 1.0 AST 94 H ALT 31 Alkaline Phosphatase 113 Ammonia Total Protein 5.9 L Albumin 3.2 L Globulin 2.7 Albumin/Globulin Ratio 1.2 02/03/21 04:08 WBC RBC Hgb Hct MCV MCH MCHC RDW Plt Count Sodium Potassium Chloride Carbon Dioxide BUN Creatinine Estimated GFR BUN/Creatinine Ratio Glucose Serum Osmolality Calcium Phosphorus Total Bilirubin Conjugated Bilirubin Unconjugated Bilirubin AST ALT Alkaline Phosphatase Ammonia < 9 L Total Protein Albumin Globulin Albumin/Globulin Ratio [facility] Medical History Johnston esophagus Breast cancer, right GERD (gastroesophageal reflux disease) Hypertension Surgical History History of hysterectomy Hx of cholecystectomy Hx of hernia repair Social History household members: spouse Smoking Status: Former smoker alcohol intake: current Assessment & Plan Assessment & Plan narrative: Ms. De La Fuente is a 60W with PMH HTN, GERD, hepatosplenomegaly who comes in with two days of abdominal pain, nausea, vomiting, and diarrhea. 1. Abdominal pain, acute -probable alcoholic hepatitis, DF on admission was 6, currently 4, steroids not indicated -per patient has had a fever at home, also has leukocytosis -CT scan showed questionable striation around kidneys, but UA with no evidence of infection, abdominal ultrasound showed no acute process -given worsening of pain repeat CT ordered and no acute process found -she received cipro/flagyl in the ED -stool culture negative, c diff negative -lipase normal -has mild transaminitis with AST>ALT in typical EtOH pattern, also elevated bilirubin, 02/02 labs are mildly improving alcoholic hepatitis can present this way -patient now acknowledges significant alcohol abuse -viral hepatitis serologies negative -ordered for IV PPI, zofran, benzos, maalox, and pain meds for symptom control 2. EtOH withdrawal and EtOH abuse -patient initially denied significant alcohol use, but now says can drink as much as a gallon of vodka in a day -last use per patient was Sunday 01/28 -has been on CIWA, but continues to remain symptomatic despite benzos -given significant alcohol use, received phenobarb load on 02/02 260mg total IV phenobarb and 3 doses of 64.8mg phenobarb -phenobarb discontinued due to patient seeming slightly more lethargic -continue CIWA prn -ordered thiamine, folate, MVI -SW eval 2. Alcoholic ketoacidosis, resolved -noted on labs with low CO2 -no gap noted now, initially had anion gap with ketones in urine -blood sugar here has not been grossly elevated -ordered for thiamine 3. Hypophosphatemia -related to alcohol abuse -mildly low at 1.6, but not tolerating orals -replete with IV phos 4. GERD -IV PPI as above, holding oral for now given symptoms 5. HTN -hold amlodipine, lisinopril until tolerating POs DIET: full liquids IVF: normal saline at 100cc/hr DVT ppx: heparin sc Code: Full, proxy is Edwin Rodriguez VTE Deep Vein Thrombosis/Pulmonary Embolism Present on Admission: No
[2021-02-03] MEDS: MAG HYDROX/ALUM/SIMETH 30 ML UDC PO (15:53)
[2021-02-03] MEDS: LORazepam 1 MG TABLET PO (17:40)
[2021-02-03] MEDS: MELATONIN 3 MG TABLET 6 MG PO (23:44)
[2021-02-04] VITALS (12 sets, daily range): BP systolic 122–170; BP diastolic 62–98; PULSE 76–92; RESP 14–22; TEMP 36.4–37.3; O2SAT 93–98
[2021-02-04] MEDS: LORazepam 1 MG TABLET PO ×2 (00:02→14:16)
[2021-02-04] MEDS: SODIUM CHLORIDE 0.9% 1,000 ML 100 ML IV (00:33)
[2021-02-04 04:54] LABS: Hematocrit 38.5 % (36-46); Hemoglobin 13.1 g/dL (12.0-16.0); Mean Corpuscular HGB Conc 33.9 % (30-36); Mean Corpuscular Hemoglobin 31.9 PG (26-34); Platelet Count 153 X10^3/uL (150-400); Red Cell Distribution Width 13.1 % (11.6-14.8); White Blood Cell Count 4.8 X10^3/uL (4.5-11.0)
[2021-02-04 05:00] LABS: Alanine Aminotransferase 32 IU/L (<35); Albumin 3.4 g/dL (3.5-5.0); Albumin Globulin Ratio 1.3 (1.0-2.8); Alkaline Phosphatase 124 U/L (38-126); Aspartate Aminotransferase 83 IU/L (14-36); Bilirubin Total 0.8 mg/dL (0.2-1.3); Bilirubin Unconjugated 0.4 mg/dL (0.0-1.1); Blood Urea Nitrogen 4 mg/dL (7-17); Calcium 9.1 mg/dL (8.4-10.2); Carbon Dioxide 30 mmol/L (22-32); Chloride 103 mmol/L (98-107); Estimated Glomerular Filt Rate > 60.0 mL/min (>60); Globulin 2.7 g/dL (1.7-4.1); Glucose 93 mg/dL (70-100); HEMOLYSIS < 15 (0-50); Magnesium 1.8 mg/dL (1.6-2.3); Phosphorous 3.5 mg/dL (2.5-4.5); Potassium 3.5 mmol/L (3.4-5.1); Sodium 139 mmol/L (137-145); Total Protein 6.1 g/dL (6.3-8.2)
--- NOTE | 2021-02-04 07:48 | PM.PN.1 ---
Subjective Subjective Date Patient Seen: 02/04/21 Time Patient Seen: 10:03 Interval history: She is seen in her room here on 02/04/2021. She says she is feeling better, still gets nauseated when she looks at her breakfast, has less left upper quadrant abdominal pain. She is disappointed that I am not promising she can go home today. The AST has dropped from 94 down to 83 and the ALT is stable at 32. She says she slept ?off and on? last night. The potassium has come up from 2.9 to 3.5. The CMP and CBC are otherwise normal. The blood pressure is 151/83. Exam Vital Signs (past 8 hours): - 02/03/21 23:57 02/04/21 00:00 02/04/21 00:50 Temperature 99.1 F Pulse Rate 76 85 Respiratory Rate 22 18 Blood Pressure 122/62 Pulse Oximetry 96 95 02/04/21 04:47 Temperature 98.0 F Pulse Rate 85 Respiratory Rate 16 Blood Pressure 151/83 H Pulse Oximetry 95 Oxygen Delivery Method Room Air Oxygen Flow Rate 0 Narrative Exam Narrative: She is alert and oriented x3. No signs of alcohol withdrawal distress. Heart is regular rate and rhythm without murmur Lungs are clear to auscultation bilaterally Abdomen is soft, quite distended diffusely, not tender, diminished bowel sounds bilaterally. No ankle edema. Objective Labs Result Diagrams: 02/04/21 04:35 02/04/21 04:35 Labs: Laboratory Results - last 24 hr 02/01/21 02/04/21 02/04/21 09:35 04:35 04:35 WBC 4.8 RBC 4.10 Hgb 13.1 Hct 38.5 MCV 94.0 MCH 31.9 MCHC 33.9 RDW 13.1 Plt Count 153 Sodium 139 Potassium 3.5 Chloride 103 Carbon Dioxide 30 BUN 4 L Creatinine 0.40 L Estimated GFR > 60.0 BUN/Creatinine Ratio 10.0 Glucose 93 Serum Osmolality 289 Calcium 9.1 Phosphorus Magnesium Total Bilirubin Conjugated Bilirubin Unconjugated Bilirubin AST ALT Alkaline Phosphatase Total Protein Albumin Globulin Albumin/Globulin Ratio 02/04/21 04:35 WBC RBC Hgb Hct MCV MCH MCHC RDW Plt Count Sodium Potassium Chloride Carbon Dioxide BUN Creatinine Estimated GFR BUN/Creatinine Ratio Glucose Serum Osmolality Calcium Phosphorus 3.5 Magnesium 1.8 Total Bilirubin 0.8 Conjugated Bilirubin 0.0 Unconjugated Bilirubin 0.4 AST 83 H ALT 32 Alkaline Phosphatase 124 Total Protein 6.1 L Albumin 3.4 L Globulin 2.7 Albumin/Globulin Ratio 1.3 PFSH Medical History Johnston esophagus Breast cancer, right GERD (gastroesophageal reflux disease) Hypertension Surgical History History of hysterectomy Hx of cholecystectomy Hx of hernia repair Social History household members: spouse Smoking Status: Former smoker alcohol intake: current Assessment & Plan Assessment & Plan narrative: Ms. De La Fuente is a 60 female with PMH HTN, GERD, hepatosplenomegaly who came in with two days of abdominal pain, nausea, vomiting, and diarrhea. 1. Abdominal pain, acute -probable alcoholic hepatitis, DF on admission was 6, currently 4, steroids not indicated -per patient she felt like she had a fever at home, also had leukocytosis on admission -CT scan showed questionable striation around kidneys, but UA with no evidence of infection, abdominal ultrasound showed no acute process or ascites to explain the distension -given worsening of pain repeat CT ordered and no acute process again was found -she received cipro/flagyl in the ED -stool culture negative, c diff negative -lipase normal -has mild transaminitis with AST>ALT in typical EtOH pattern, also elevated bilirubin, 02/02 labs are mildly improving alcoholic hepatitis can present this way -patient now acknowledges significant alcohol abuse -viral hepatitis serologies negative -ordered for IV PPI, zofran, benzos, maalox, and pain meds for symptom control -likely home on 02/05 2. EtOH withdrawal and EtOH abuse -patient initially denied significant alcohol use, but now says can drink as much as a gallon of vodka in a day -last use per patient was Sunday 01/28 -has been on CIWA, but continues to remain symptomatic despite benzos -given significant alcohol use, received phenobarb load on 02/02 260mg total IV phenobarb and 3 doses of 64.8mg phenobarb -phenobarb discontinued due to patient seeming slightly more lethargic -continue CIWA prn -ordered thiamine, folate, MVI -SW eval 2. Alcoholic ketoacidosis, resolved -noted on labs with low CO2 -no gap noted now, initially had anion gap with ketones in urine -blood sugar here has not been grossly elevated -ordered for thiamine 3. Hypophosphatemia -related to alcohol abuse -mildly low at 1.6, but not tolerating orals -replete with IV phos 4. GERD -IV PPI as above, holding oral for now given symptoms 5. HTN -resumed amlodipine and lisinopril on 02/04. DIET: full liquids IVF: normal saline at 100cc/hr stopped 02/04 DVT ppx: heparin sc Code: Full, proxy is Edwin Rodriguez VTE Deep Vein Thrombosis/Pulmonary Embolism Present on Admission: No
[2021-02-04] MEDS: CHOLESTYRAMINE/ASPARTAME 4 GM PACK PO (08:11)
[2021-02-04] MEDS: PANTOPRAZOLE 40 MG VIAL IV (08:11)
[2021-02-04] MEDS: FOLIC ACID 1 MG TABLET PO (08:12)
[2021-02-04] MEDS: HEPARIN 5,000 UNIT/ML VIAL 5000 UNIT SUBCUT ×2 (08:12→20:25)
[2021-02-04] MEDS: VENLAFAXINE ER 75 MG CAP 225 MG PO (08:12)
[2021-02-04] MEDS: OXYCODONE IR 5 MG TABLET PO ×2 (08:12→15:07)
[2021-02-04] MEDS: MULTIVITAMIN 1 TABLET 1 TAB PO (08:12)
[2021-02-04] MEDS: THIAMINE 100 MG in SODIUM CHLORIDE 0.9% 100 ML 404 ML IV (08:20)
[2021-02-04] MEDS: ONDANSETRON 4 MG/2 ML INJ IV (14:51)
[2021-02-04] MEDS: ACETAMINOPHEN 325 MG TABLET 650 MG PO (14:51)
[2021-02-04] MEDS: LORazepam 2 MG/ML INJ IV (17:52)
[2021-02-04] MEDS: MORPHINE 2 MG/ML INJ IV (18:44)
[2021-02-04] MEDS: KETOROLAC 10 MG TABLET 30 MG PO (20:24)
[2021-02-04] MEDS: MELATONIN 3 MG TABLET 6 MG PO (20:25)
[2021-02-04] MEDS: lisinopriL 20 MG TABLET 40 MG PO (20:25)
[2021-02-05] VITALS: O2SAT 97
[2021-02-05] MEDS: ACETAMINOPHEN 325 MG TABLET 650 MG PO (00:01)
[2021-02-05] MEDS: OXYCODONE IR 5 MG TABLET PO (00:01)
[2021-02-05] MEDS: LORazepam 1 MG TABLET PO (00:01)
[2021-02-05 00:35] VITALS: PULSE 72; RESP 19
[2021-02-05] MEDS: AMLODIPINE 5 MG TABLET 10 MG PO ×2 (02:58→09:01)
[2021-02-05] MEDS: SODIUM CHLORIDE 0.9% FLUSH 10 ML IV ×2 (02:58→09:01)
[2021-02-05] MEDS: MORPHINE 2 MG/ML INJ IV (02:58)
[2021-02-05 03:29] VITALS: BP 153/84; PULSE 74; RESP 18; TEMP 36.4; O2SAT 94
--- NOTE | 2021-02-05 07:16 | PM.PN.1 ---
Exam Vital Signs (past 8 hours): - 02/04/21 23:45 02/05/21 00:00 02/05/21 00:35 Temperature 97.5 F L Pulse Rate 80 72 Respiratory Rate 18 19 Blood Pressure 165/94 H Pulse Oximetry 97 97 02/05/21 03:29 Temperature 97.6 F Pulse Rate 74 Respiratory Rate 18 Blood Pressure 153/84 H Pulse Oximetry 94 Oxygen Delivery Method Room Air Oxygen Flow Rate 0 Objective Labs Result Diagrams: 02/04/21 04:35 02/04/21 04:35 PFSH Medical History Johnston esophagus Breast cancer, right GERD (gastroesophageal reflux disease) Hypertension Surgical History History of hysterectomy Hx of cholecystectomy Hx of hernia repair Social History household members: spouse Smoking Status: Former smoker alcohol intake: current Assessment & Plan Assessment & Plan narrative: Ms. De La Fuente is a 60 female with PMH HTN, GERD, hepatosplenomegaly who came in with two days of abdominal pain, nausea, vomiting, and diarrhea. 1. Abdominal pain, acute -probable alcoholic hepatitis, DF on admission was 6, currently 4, steroids not indicated -per patient she felt like she had a fever at home, also had leukocytosis on admission -CT scan showed questionable striation around kidneys, but UA with no evidence of infection, abdominal ultrasound showed no acute process or ascites to explain the distension -given worsening of pain repeat CT ordered and no acute process again was found -she received cipro/flagyl in the ED -stool culture negative, c diff negative -lipase normal -has mild transaminitis with AST>ALT in typical EtOH pattern, also elevated bilirubin, 02/02 labs are mildly improving alcoholic hepatitis can present this way -patient now acknowledges significant alcohol abuse -viral hepatitis serologies negative -ordered for IV PPI, zofran, benzos, maalox, and pain meds for symptom control -likely home on 02/05 2. EtOH withdrawal and EtOH abuse -patient initially denied significant alcohol use, but now says can drink as much as a gallon of vodka in a day -last use per patient was Sunday 01/28 -has been on CIWA, but continues to remain symptomatic despite benzos -given significant alcohol use, received phenobarb load on 02/02 260mg total IV phenobarb and 3 doses of 64.8mg phenobarb -phenobarb discontinued due to patient seeming slightly more lethargic -continue CIWA prn -ordered thiamine, folate, MVI -SW eval 2. Alcoholic ketoacidosis, resolved -noted on labs with low CO2 -no gap noted now, initially had anion gap with ketones in urine -blood sugar here has not been grossly elevated -ordered for thiamine 3. Hypophosphatemia -related to alcohol abuse -mildly low at 1.6, but not tolerating orals -replete with IV phos 4. GERD -IV PPI as above, holding oral for now given symptoms 5. HTN -resumed amlodipine and lisinopril on 02/04. DIET: full liquids IVF: normal saline at 100cc/hr stopped 02/04 DVT ppx: heparin sc Code: Full, proxy is Edwin Rodriguez VTE Deep Vein Thrombosis/Pulmonary Embolism Present on Admission: No
[2021-02-05 08:00] VITALS: BP 123/74; PULSE 85; RESP 17; TEMP 36.4; O2SAT 95
[2021-02-05 08:26] VITALS: O2SAT 96
--- NOTE | 2021-02-05 08:54 | P.DS_ITS ---
History of Present Illness History of Present Illness Date Patient Seen: 02/05/21 Time Patient Seen: 08:55 Chief complaint: vomiting for two days, diarrhea, fever Narrative: Ms. De La Fuente is a 60W with PMH HTN, cholecystectomy, hysterectomy R breast cancer s/p lumpectomy, abdominal hernia repair, hepatomegaly, GERD with barretts esophagus who comes in to the ED with abdominal pain, vomiting, diarrhea. She noted this started two days ago. She has not eaten anything different from the rest of her family, and none of them have similar symptoms. She noted a fever to Tmax 100-101. She has no chest pain, shortness of breath, coughing, dysuria. Her pain is located in the umbilical and left abdominal region. She has noted no blood in her stools or in her vomit. She is tremulous. She has had difficulty keeping down food and liquid. In the ED, vitals notable for tachycardia in the 110s, and hypertensive in the systoilc 150s. Her other vitals were normal. Labs notable for WBC of 14.1, INR 1.2, Sodium 132, CO2 19, creatinine 0.64, phosphorous 1.6. Bili 3.4, AST 89, ALT 41, alk phos 171. UA shows protein, ketones, blood. Alcohol negative. CT shows striated hypoenhancement of both kidneys that could be related to phase enhancement. No renal calculi. Also noted hepatosplenomegaly. Small hiatal hernia and distal esophageal wall thickening Discharge Providers Provider Date of admission: 02/01/21 12:48 Discharge Date: 02/05/21 Primary care physician: Jimena Melissa DO Consults: 02/02/21 11:13 Consult to [facility] [place] - [employer] Routine Comment: etoh abuse [facility] [place] Consult: Substance Abuse Assess Discharge provider: Alexis Hurtado MD Summary Hospital Course Discharge Diagnosis: 1. Abdominal pain 2. EtOH withdrawal and EtOH abuse 2. Alcoholic ketoacidosis 3. Hypophosphatemia 4. GERD 5. HTN Hospital Course: 1. Abdominal pain of probable alcoholic hepatitis -fever at home and leukocytosis on admission -CT scan showed questionable striation around kidneys, but UA with no evidence of infection, abdominal ultrasound showed no acute process or ascites to explain the distension -given worsening of pain repeat CT ordered and no acute process again was found -she received cipro/flagyl in the ED -stool culture negative, c diff negative -lipase normal -has mild transaminitis with AST>ALT in typical EtOH pattern, also elevated bilirubin, 02/02 labs are mildly improving alcoholic hepatitis can present this way -patient now acknowledges significant alcohol abuse -viral hepatitis serologies negative -symptoms resolved with hospital care and ready for discharge home on 02/05. Advised to stop drinking alcohol completely. 2. EtOH withdrawal and EtOH abuse -patient initially denied significant alcohol use, but then admitted to drinking as much as a gallon of vodka in a day -last use 01/28 -spent several days symptomatic despite benzos -given significant alcohol use, received phenobarb load on 02/02 260mg total IV phenobarb and 3 doses of 64.8mg phenobarb -phenobarb discontinued due to patient seeming slightly more lethargic -received thiamine, folate, MVI (Mg level apparently not checked) -advised to stop drinking alcohol completely 2. Alcoholic ketoacidosis, resolved 3. Hypophosphatemia -related to alcohol abuse -mildly low at 1.6, but not tolerating orals -given IV phos 4. GERD -IV PPI and resume Prilosec at discharge 5. HTN -resumed amlodipine and lisinopril on 02/04. Status at Discharge Cognitive/behavioral status at discharge: at baseline, oriented Functional status at discharge: independent ambulation Overall status at discharge: patient is back to baseline Time Spent with Patient Time spent: Greater than 30 minutes Exam Vital Signs (past 8 hours): - 02/05/21 03:29 02/05/21 08:00 02/05/21 08:26 Temperature 97.6 F 97.6 F Pulse Rate 74 85 Respiratory Rate 18 17 Blood Pressure 153/84 H 123/74 Pulse Oximetry 94 95 96 Oxygen Delivery Method Room Air Oxygen Flow Rate 0 Narrative Exam Narrative: She is alert and oriented x3. No apparent distress Heart is regular rate and rhythm without murmur Lungs are clear to auscultation bilaterally Extremities have no ankle edema Abdomen is soft, nontender, no organomegaly. Objective Labs Result Diagrams: 02/04/21 04:35 02/04/21 04:35 [facility] Medical History (Updated 02/05/21 @ 10:50 by Alexis Hurtado MD) Alcoholism Johnston esophagus Breast cancer, right GERD (gastroesophageal reflux disease) Hypertension Surgical History History of hysterectomy Hx of cholecystectomy Hx of hernia repair Social History household members: spouse Smoking Status: Former smoker alcohol intake: current Discharge Plan Discharge Plan Patient Disposition: Home Provider Discharge Comment: follow up with Dr. Melissa in a week Do not drink alcohol Discharge orders & Medications Prescriptions: Continued amlodipine 10 MG tablet 10 mg PO QDAY Qty: 30 RF: 6 venlafaxine 75 mg capsule,extended release 24hr 225 mg PO DAILY RF: 0 omeprazole 20 mg capsule,delayed release(DR/EC) 20 mg PO BID RF: 0 hydroxyzine HCl 25 mg tablet 25 mg PO Q8H PRN (Reason: Anxiety) RF: 0 clobetasol 0.05 % ointment 1 applic TOPICAL DAILY PRN (Reason: Rash) RF: 0 propranolol 20 mg tablet 20 mg PO BID PRN (Reason: heart racing) RF: 0 cholestyramine (with sugar) 4 gram powder 1 ea PO DAILY PRN (Reason: Diarrhea) RF: 0 lisinopril 20 MG tablet 40 mg PO BEDTIME RF: 0 Follow up/Referrals: Jimena Melissa DO [Primary Care Provider] - Diet/Activity/Treatments Diet: Low-fat, Low-sodium and Low-cholesterol Visit Report/Discharge Packet Instructions: Cholesterol-lowering Diet, Fat-Restricted Diet, DI for Drug or Alcohol Withdrawal Discharge Data Primary Care Provider: Jimena Melissa Quality VTE Deep Vein Thrombosis/Pulmonary Embolism Present on Admission: No
[2021-02-05] MEDS: VENLAFAXINE ER 75 MG CAP 225 MG PO (09:01)
[2021-02-05] MEDS: MULTIVITAMIN 1 TABLET 1 TAB PO (09:01)
[2021-02-05] MEDS: FOLIC ACID 1 MG TABLET PO (09:01)
--- NOTE | 2021-02-05 11:12 | PC.NURSE ---
Discharge instructions reviewed with patient, she states understanding and intends to stop drinking alcohol. Patient states she spoke with Dr. Melissa's office and will contact them again this week to ensure her follow up appointment. Patient feeling much better this morning, denies headache, up to bathroom and in room without difficulty. Patient instructed to seek care if symptoms return or worsen. Patient escorted out via wheelchair with all her belongings to home with her .
== END 2021-02-05 11:14 | disposition home or self-care (01) | DRG 433 ==
LOC: ED 12:48 → ICU 13:29 → AC 02-02 14:37 → ICU 02-02 14:37
PROVIDERS: Emergency Medicine; Nurse Practitioner Family; Admitting Provider Internal Medicine; Emergency Provider Physician Assistant; PCP Family Medicine; Referring Provider Physician Assistant; Visit Provider Internal Medicine
DX: K70.10 Alcoholic hepatitis without ascites (principal); E87.2 Acidosis; F10.132 Alcohol abuse with withdrawal with perceptual disturbance; Y90.0 Blood alcohol level of less than 20 mg/100 ml; E83.39 Other disorders of phosphorus metabolism; K21.9 Gastro-esophageal reflux disease without esophagitis; I10 Essential (primary) hypertension; Z87.891 Personal history of nicotine dependence; Z20.822 Contact with and (suspected) exposure to COVID-19
CPT/HCPCS: 36415; 70450; 74177; 76700; 80048; 80053; 80076; 80320; 81001; 81003; 81025; 82009; 82140; 82150; 82570; 82962; 82977; 83036; 83605; 83690; 83735; 83930; 84100; 84105; 84443; 85025; 85027; 85610; 86704; 86706; 86708; 87040; 87045; 87340; 87493; 87635; 87797; 87899; 93005; 93010; 94762; 96365; 96368; 96375; 96376; 99284; C9803; C9113; J0744; J1644; J2060; J2270; J2405; J2560; J3475; Q9967

== ENCOUNTER → 2023-06-22 14:54 | Outpatient (CLI) | payer OTHER, SELFPAY ==
[2021-02-01 14:02] VITALS: BMI 28.0
== END ==
PROVIDERS: PCP Family Medicine; Visit Provider Nurse Practitioner Family
DX: R30.0 Dysuria (principal)
CPT/HCPCS: 87077; 87086; 87186